=== PATIENT | male | born 1945 | race Native Hawaiian/Other Pacific Islander ===

== ENCOUNTER 2018-05-24 23:37 | Inpatient (IN) | payer MEDICARE ==
--- NOTE | 2018-05-24 23:59 | ED PDOC ---
Arrival/HPI - General Chief Complaint: Weakness/Neurological Deficit Time Seen by Provider: 05/24/18 23:42 Historian: Patient, Family - History of Present Illness Narrative History of Present Illness (Text): 05/24/18 23:59 73 year old male, whose past medical history includes diabetes and Hypertension, presents to the emergency department complaining of weakness for the last couple of days. As per family, patient had a fever yesterday and was diaphoretic. Patient also had an episode of vomiting yesterday and today. He did not get the flu shot this year. Patient is also complaining of decrease appetite and urinary urgency, but denies any chills, chest pain, shortness of breath, abdominal pain, nausea, diarrhea, back pain, neck pain, headache, dizziness, or any other complaints. PMD: Dr. Gama Time/Duration: Other (couple days) Symptom Onset: Gradual Symptom Course: Unchanged Activities at Onset: Light Context: Home Past Medical History - Provider Review Nursing Documentation Reviewed: Yes - Infectious Disease Hx of Infectious Diseases: None - Cardiac Hx Cardiac Disorders: Yes Hx Hypertension: Yes - Pulmonary Hx Respiratory Disorders: No - Neurological Hx Neurological Disorder: No - HEENT Hx HEENT Disorder: No - Renal Hx Renal Disorder: No - Endocrine/Metabolic Hx Endocrine Disorders: Yes Hx Diabetes Mellitus Type 2: Yes - Hematological/Oncological Hx Blood Disorders: No - Integumentary Hx Dermatological Disorder: No - Musculoskeletal/Rheumatological Hx Musculoskeletal Disorders: No - Gastrointestinal Hx Gastrointestinal Disorders: No - Genitourinary/Gynecological Hx Genitourinary Disorders: No - Psychiatric Hx Psychophysiologic Disorder: No Hx Substance Use: No - Anesthesia Hx Anesthesia: No Family/Social History - Physician Review Nursing Documentation Reviewed: Yes Family/Social History: No Known Family HX Smoking Status: Never Smoked Hx Alcohol Use: No Hx Substance Use: No Allergies/Home Meds Allergies/Adverse Reactions: Allergies No Known Allergies Allergy (Verified 05/24/18 23:50) Home Medications: Home Meds Medication Instructions Recorded Confirmed MetFORMIN [glucoPHAGE] 1,000 mg PO BID 05/24/18 05/24/18 amLODIPine [Norvasc] 10 mg PO BID 05/24/18 05/24/18 Review of Systems - Physician Review All systems were reviewed & negative as marked: Yes - Review of Systems Constitutional: Fevers. absent: Other (Chills) Respiratory: absent: SOB Cardiovascular: absent: Chest Pain Gastrointestinal: Vomiting, Appetite Changes (decrease). absent: Abdominal Pain, Diarrhea, Nausea Genitourinary Male: Other (urinary urgency) Musculoskeletal: absent: Back Pain, Neck Pain Neurological: Other (generalized wekaness). absent: Headache, Dizziness Endocrine: Diaphoresis Physical Exam Vital Signs Reviewed: Yes Vital Signs Temp Pulse Resp BP Pulse Ox 05/24/18 23:49 98.3 F 103 H 20 143/81 94 L Temperature: Febrile Blood Pressure: Normal Pulse: Tachycardic Respiratory Rate: Normal Appearance: Positive for: Well-Appearing, Non-Toxic, Comfortable Pain Distress: None Mental Status: Positive for: Alert and Oriented X 3 - Systems Exam Head: Present: Atraumatic, Normocephalic Pupils: Present: PERRL Extroacular Muscles: Present: EOMI Conjunctiva: Present: Normal Mouth: Present: Moist Mucous Membranes Neck: Present: Normal Range of Motion Respiratory/Chest: Present: Clear to Auscultation, Good Air Exchange. No: Respiratory Distress, Accessory Muscle Use Cardiovascular: Present: Tachycardic. No: Murmurs Abdomen: No: Tenderness, Distention, Peritoneal Signs Back: Present: Normal Inspection Upper Extremity: Present: Normal Inspection. No: Cyanosis, Edema Lower Extremity: Present: Normal Inspection. No: Edema Neurological: Present: GCS=15, CN II-XII Intact, Speech Normal Skin: Present: Warm, Dry, Normal Color. No: Rashes Psychiatric: Present: Alert, Oriented x 3, Normal Insight, Normal Concentration Medical Decision Making ED Course and Treatment: 05/24/18 23:59 Impression: 73 year old male presents complaining of weakness for the past couple of days associated with fever, diaphoresis, and episodes of vomiting yesterday and today. Patient also complaining of decrease appetite and urinary urgency. Plan: -- EKG -- Labs -- blood Culture -- Influenza A B -- Urinalysis w/ micro -- CXR -- Azactam 2gm, HumuLIN R -- Reassess and disposition Progress Notes: 05/24/18 23:55 EKG shows Sinus Tachycardia at 105 BPM. Interpreted by me 05/25/18 01:13 CXR Impression: As read by NAD. [email or web address] 05/25/18 01:32 Lactate 6.8. Code Sepsis called. 05/25/18 02:[address] Gama who is aware and agrees with the plan. 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 no acute mi on ekg possible sepsis and hyperglycemia 05/25/18 02:[address] Nava who is aware and agrees with the plan for ICU consult. pt stable for telemetry - Lab Interpretations I have reviewed the lab results: Yes - RAD Interpretation Supervisor [place]: ED Physician - EKG Interpretation Interpreted by ED Physician: Yes Type: 12 lead EKG - Scribe Statement The provider has reviewed the documentation as recorded by the Scribe Tracey Gonzalez Provider Scribe Attestation: All medical record entries made by the Scribe were at my direction and personally dictated by me. I have reviewed the chart and agree that the record accurately reflects my personal performance of the history, physical exam, medical decision making, and the department course for this patient. I have also personally directed, reviewed, and agree with the discharge instructions and disposition. Disposition/Present on Arrival - Present on Arrival Any Indicators Present on Arrival: No History of DVT/PE: No History of Uncontrolled Diabetes: No Urinary Catheter: No History of Decub. Ulcer: No History Surgical Site Infection Following: None - Disposition Have Diagnosis and Disposition been Completed?: Yes Diagnosis: Sepsis, Hyperglycemia, Myocardial infarction Disposition: HOSPITALIZED Disposition Time: 04:00 Condition: SERIOUS
[2018-05-25 00:40] LABS: PH,URINE 6.5 (4.7-8.0); URINE BILIRUBIN NEGATIVE (NEGATIVE); URINE BLOOD MODERATE (NEGATIVE); URINE GLUCOSE (UA) >=1000 mg/dL (NEGATIVE); URINE LEUKOCYTE ESTERASE NEGATIVE Leu/uL (NEGATIVE); URINE PROTEIN 100 mg/dL (<30 mg/dL); URINE UROBILINOGEN 0.2 E.U./dL (<1 E.U./dL)
[2018-05-25 00:41] LABS: ALBUMIN 3.8 g/dL (3.0-4.8); BASO # 0.01 K/mm3 (0.0-2.0); BASO % 0.1 % (0.0-3.0); CALCIUM 8.6 mg/dL (8.4-10.5); GRAN # 8.71 (1.4-6.5); GRAN % 88.8 % (50.0-68.0); LYMPH # 0.7 (1.2-3.4); LYMPH % 6.9 % (22.0-35.0); MEAN CELL VOLUME 81.1 fl (80.0-105.0); MEAN CORPUSCULAR HEMOGLOBIN 26.4 pg (25.0-35.0); MEAN CORPUSCULAR HGB CONC 32.5 g/dl (31.0-37.0); MEAN PLATELET VOLUME 11.4 fl (7.0-11.0); MONO # 0.4 (0.1-0.6); MONO % 4.2 % (1.0-6.0); RBC 4.17 10^6/uL (3.5-6.1); RED CELL DISTRIBUTION WIDTH 13.8 % (11.5-14.5); WHITE BLOOD COUNT 9.8 10^3/uL (4.5-11.0)
[2018-05-25] MEDS ORDERED: Insulin Regular 100 UNITS in Sodium Chloride 0.9% 99 ML IV PRN (00:46)
[2018-05-25 00:49] LABS: URINE APPEARANCE CLEAR (CLEAR); URINE COLOR YELLOW (YELLOW)
[2018-05-25] MEDS ORDERED: Sodium Chloride 0.9% 1,000 ML IV SCH (01:00)
[2018-05-25] MEDS ORDERED: Insulin Regular 1 UNITS/0.01 ML ML IVP STA (01:03)
[2018-05-25 01:07] LABS: URINE WBC 0 - 2 /hpf (0-6)
[2018-05-25 01:08] LABS: URINE BACTERIA RARE /hpf; URINE EPITHELIAL CELLS 0 - 2 /hpf (0-5)
[2018-05-25 01:23] LABS: TROPONIN I 0.56 ng/mL
[2018-05-25 01:30] LABS: VENOUS BLOOD GAS BASE EXCESS -6.8 mmol/L (0.0-2.0); VENOUS BLOOD GAS PO2 77 mm/Hg (30-55); VENOUS BLOOD PH 7.26 (7.32-7.43)
[2018-05-25] MEDS ORDERED: Aztreonam 2 Gm in NS 100mL 100 ML IVPB STA (01:35)
[2018-05-25] MEDS ORDERED: Vancomycin 1gm in NS 250ml 1 GM/250 ML BAG IVPB STA (03:53)
[2018-05-25] MEDS ORDERED: Sodium Chloride 0.9% 1,000 ML IV STA (03:55)
--- NOTE | 2018-05-25 04:18 | CP.PCM.CON ---
<Mando Hernandez - Last Filed: 05/25/18 04:25> History of Present Illness - History of Present Illness History of Present Illness: Mando Hernandez DO PGY1. ICU Consult note for Hospitalist Service C.C: weakness x4 days 73 y/o male with PMH of HTN, DM2 presents to ED with 4 days of generalized weakness. Yesterday, he started to have fever, diaphoresis, urinary urgency with incontinence and loss of appetite. He also had one episode of NBNB vomiting. He is compliant with his diabetes medication Metformin 1000mg bid. He denies chest pain, abdominal pain, N/V/D, leg swelling.Patient denied any recent travel or sick contacts. 12 points ROS with pertinent positive above. PMH: HTN, DM2 PSH: denied Med: norvasc 10mg qd, metformin 1000mg bid ALL: NKDA Soc Hx: denied alcohol, smoking, drug use FH: non contributory Past Patient History - Infectious Disease Hx of Infectious Diseases: None - Past Social History Smoking Status: Never Smoked - CARDIAC Hx Cardiac Disorders: Yes Hx Hypertension: Yes - PULMONARY Hx Respiratory Disorders: No - NEUROLOGICAL Hx Neurological Disorder: No - HEENT Hx HEENT Problems: No - RENAL Hx Chronic Kidney Disease: No - ENDOCRINE/METABOLIC Hx Endocrine Disorders: Yes Hx Diabetes Mellitus Type 2: Yes - HEMATOLOGICAL/ONCOLOGICAL Hx Blood Disorders: No - INTEGUMENTARY Hx Dermatological Problems: No - MUSCULOSKELETAL/RHEUMATOLOGICAL Hx Musculoskeletal Disorders: No - GASTROINTESTINAL Hx Gastrointestinal Disorders: No - GENITOURINARY/GYNECOLOGICAL Hx Genitourinary Disorders: No - PSYCHIATRIC Hx Psychophysiologic Disorder: No Hx Substance Use: No - SURGICAL HISTORY Hx Surgeries: No - ANESTHESIA Hx Anesthesia: No Meds Allergies/Adverse Reactions: Allergies Allergy/AdvReac Type Severity Reaction Status Date / Time No Known Allergies Allergy Verified 05/24/18 23:50 - Medications Medications: Current Medications Acetaminophen (Tylenol 325mg Tab) 650 mg PO Q4H PRN PRN Reason: Fever >100.5 F Vancomycin HCl (Vancomycin 1gm) 1 gm in 250 mls @ 167 mls/hr IVPB STAT STA; Protocol Stop: 05/25/18 05:22 Last Admin: 05/25/18 04:12 Dose: 167 mls/hr Sodium Chloride (Sodium Chloride 0.9%) 1,000 mls @ 100 mls/hr IV .Q10H STA Stop: 05/25/18 13:54 Last Admin: 05/25/18 04:12 Dose: 100 mls/hr Insulin Human Regular (Humulin R Low) 0 units SC [facility]; Protocol Ondansetron HCl (Zofran Inj) 4 mg IVP Q6H PRN PRN Reason: Nausea/Vomiting Physical Exam - Constitutional Appears: Well, No Acute Distress - Head Exam Head Exam: ATRAUMATIC, NORMAL INSPECTION, NORMOCEPHALIC - Eye Exam Eye Exam: EOMI, Normal appearance, PERRL Pupil Exam: NORMAL ACCOMODATION, PERRL - ENT Exam ENT Exam: Mucous Membranes Dry - Neck Exam Neck exam: Positive for: Normal Inspection - Respiratory Exam Respiratory Exam: Clear to Auscultation Bilateral, NORMAL BREATHING PATTERN - Cardiovascular Exam Cardiovascular Exam: Tachycardia, REGULAR RHYTHM, +S1, +S2. absent: Gallop, Rubs - GI/Abdominal Exam GI & Abdominal Exam: Normal Bowel Sounds, Soft. absent: Tenderness - Extremities Exam Extremities exam: Positive for: normal capillary refill, normal inspection, pedal pulses present - Back Exam Back exam: NORMAL INSPECTION. absent: CVA tenderness (L), CVA tenderness (R) - Neurological Exam Neurological exam: Alert, CN II-XII Intact, Normal Gait, Oriented x3, Reflexes Normal - Psychiatric Exam Psychiatric exam: Normal Affect, Normal Mood - Skin Skin Exam: Diaphoretic, Intact, Warm Results - Vital Signs Recent Vital Signs: Last Vital Signs Temp 99.2 F 05/25/18 02:59 Pulse 112 H 05/25/18 02:59 Resp 18 05/25/18 02:59 BP 145/74 05/25/18 02:59 Pulse Ox 94 L 05/25/18 02:59 - Labs Result Diagrams: 05/25/18 00:04 05/25/18 00:04 Labs: Laboratory Results - last 24 hr 05/25/18 05/25/18 05/25/18 00:00 00:04 00:04 WBC 9.8 RBC 4.17 Hgb 11.0 L Hct 33.8 L MCV 81.1 MCH 26.4 MCHC 32.5 RDW 13.8 Plt Count 200 MPV 11.4 H Gran % 88.8 H Lymph % (Auto) 6.9 L [place] % (Auto) 4.2 Eos % (Auto) 0.0 L Baso % (Auto) 0.1 Gran # 8.71 H Lymph # (Auto) 0.7 L [place] # (Auto) 0.4 Eos # (Auto) 0.0 Baso # (Auto) 0.01 pO2 VBG pH VBG pCO2 VBG HCO3 VBG Total CO2 VBG O2 Sat (Calc) VBG Base Excess VBG Potassium Glucose Lactate FiO2 Sodium 137 Potassium 3.7 Chloride 99 Carbon Dioxide 25 Anion Gap 17 BUN 24 H Creatinine 2.3 H Est GFR ( Amer) 34 Est GFR (Non-Af Amer) 28 Random Glucose 860 H* Calcium 8.6 Total Bilirubin 0.9 AST 49 ALT 52 Alkaline Phosphatase 137 H Troponin I 0.56 H* Total Protein 7.5 Albumin 3.8 Globulin 3.7 Albumin/Globulin Ratio 1.0 L Venous Blood Potassium Urine Color Urine Appearance Urine pH Ur Specific [place] Urine Protein Urine Glucose (UA) Urine Ketones Urine Blood Urine Nitrate Urine Bilirubin Urine Urobilinogen Ur Leukocyte Esterase Urine RBC Urine WBC Ur Epithelial Cells Urine Bacteria Influenza Typ A,B (EIA) Negative for flu a/b 05/25/18 05/25/18 00:21 01:06 WBC RBC Hgb Hct MCV MCH MCHC RDW Plt Count MPV Gran % Lymph % (Auto) [place] % (Auto) Eos % (Auto) Baso % (Auto) Gran # Lymph # (Auto) [place] # (Auto) Eos # (Auto) Baso # (Auto) pO2 77 H VBG pH 7.26 L VBG pCO2 45.0 VBG HCO3 20.2 L VBG Total CO2 21.6 L VBG O2 Sat (Calc) 95.8 H VBG Base Excess -6.8 L VBG Potassium 3.9 Glucose > 750 H* Lactate 6.8 H* FiO2 21.0 Sodium 142.0 Potassium Chloride 99.0 Carbon Dioxide Anion Gap BUN Creatinine Est GFR ( Amer) Est GFR (Non-Af Amer) Random Glucose Calcium Total Bilirubin AST ALT Alkaline Phosphatase Troponin I Total Protein Albumin Globulin Albumin/Globulin Ratio Venous Blood Potassium 3.9 Urine Color Yellow Urine Appearance Clear Urine pH 6.5 Ur Specific [place] 1.015 Urine Protein 100 H Urine Glucose (UA) >=1000 Urine Ketones Negative Urine Blood Moderate H Urine Nitrate Negative Urine Bilirubin Negative Urine Urobilinogen 0.2 Ur Leukocyte Esterase Negative Urine RBC 1 - 3 H Urine WBC 0 - 2 Ur Epithelial Cells 0 - 2 Urine Bacteria Rare Influenza Typ A,B (EIA) Assessment & Plan - Assessment and Plan (Free Text) Assessment: 73 y/o male with PMH of HTN, DM2 presents to ED with 4 days of generalized weakness associated fever, diaphoresis, urinary urgency with incontinence and loss of appetite. He was found to have BG 860, BUN/Cr 24/2.4, trop 0.56 x1 Plan: Patient seen and examined at bedside in ED. He is AAOx3, speaking in full sentences in NAD Vital signs reviewed, normotensive but tachy @112, afebrile, with 95% O2 at RA Patient received bolus fluid and 10 units of insulin in ED IVF NS@100cc/hr, levemir 10 q12hr, ASA 325mg stat ordered blood and urine culture ordered, repeat trop q6h x2 Patient is hemodynamically stable and improved after fluid resuscitation Patient will be admitted to telemetry for observation further management as per PMD Dr Wynne Case reviewed and discussed with Dr Nava <Lit Nava - Last Filed: 05/25/18 19:47> Meds - Medications Medications: Current Medications Acetaminophen (Tylenol 325mg Tab) 650 mg PO Q4H PRN PRN Reason: Fever >100.5 F Amlodipine Besylate (Norvasc) 10 mg PO DAILY [facility] Last Admin: 05/25/18 10:42 Dose: 10 mg Glimepiride (Amaryl) 4 mg PO DAILY [facility] Last Admin: 05/25/18 10:42 Dose: 4 mg Sodium Chloride (Sodium Chloride 0.9%) 1,000 mls @ 100 mls/hr IV .Q10H [facility] Last Admin: 05/25/18 05:24 Dose: 100 mls/hr Heparin Sodium/Sodium Chloride (Heparin 80118 Units/250ml 1/2 Normal Saline) 25,000 units in 250 mls @ 10 mls/hr IV .Q24H [facility]; Protocol Last Titration: 05/25/18 19:09 Dose: 8.5 mls/hr Ceftriaxone Sodium (Rocephin 1 Gram Ivpb) 1 gm in 100 mls @ 100 mls/hr IVPB DAILY [facility]; Protocol Last Admin: 05/25/18 15:14 Dose: 100 mls/hr Insulin Detemir (Levemir) 24 unit SC HS [facility] Insulin Human Lispro (Humalog Low) 0 units SC A[facility]S [facility]; Protocol Last Admin: 05/25/18 17:48 Dose: Not Given Insulin Human Lispro (Humalog) 8 units SC AC [facility] Last Admin: 05/25/18 17:51 Dose: 8 units Ondansetron HCl (Zofran Inj) 4 mg IVP Q6H PRN PRN Reason: Nausea/Vomiting Results - Vital Signs Recent Vital Signs: Last Vital Signs Temp 97.6 F 05/25/18 18:00 Pulse 115 H 05/25/18 18:00 Resp 20 05/25/18 18:00 BP 151/91 H 05/25/18 18:00 Pulse Ox 94 L 05/25/18 06:00 - Labs Result Diagrams: 05/25/18 00:04 05/25/18 06:00 Labs: Laboratory Results - last 24 hr 05/25/18 05/25/18 05/25/18 00:00 00:04 00:04 WBC 9.8 RBC 4.17 Hgb 11.0 L Hct 33.8 L MCV 81.1 MCH 26.4 MCHC 32.5 RDW 13.8 Plt Count 200 MPV 11.4 H Gran % 88.8 H Lymph % (Auto) 6.9 L [place] % (Auto) 4.2 Eos % (Auto) 0.0 L Baso % (Auto) 0.1 Gran # 8.71 H Lymph # (Auto) 0.7 L [place] # (Auto) 0.4 Eos # (Auto) 0.0 Baso # (Auto) 0.01 PT INR APTT D-Dimer, Quantitative pO2 VBG pH VBG pCO2 VBG HCO3 VBG Total CO2 VBG O2 Sat (Calc) VBG Base Excess VBG Potassium Glucose Lactate FiO2 Sodium 137 Potassium 3.7 Chloride 99 Carbon Dioxide 25 Anion Gap 17 BUN 24 H Creatinine 2.3 H Est GFR ( Amer) 34 Est GFR (Non-Af Amer) 28 POC Glucose (mg/dL) Random Glucose 860 H* Calcium 8.6 Total Bilirubin 0.9 AST 49 ALT 52 Alkaline Phosphatase 137 H Total Creatine Kinase CK-MB (CK-2) CK-MB (CK-2) % Troponin I 0.56 H* Total Protein 7.5 Albumin 3.8 Globulin 3.7 Albumin/Globulin Ratio 1.0 L Triglycerides Cholesterol LDL Cholesterol Direct HDL Cholesterol Procalcitonin Venous Blood Potassium Urine Color Urine Appearance Urine pH Ur Specific [place] Urine Protein Urine Glucose (UA) Urine Ketones Urine Blood Urine Nitrate Urine Bilirubin Urine Urobilinogen Ur Leukocyte Esterase Urine RBC Urine WBC Ur Epithelial Cells Urine Bacteria Influenza Typ A,B (EIA) Negative for flu a/b 05/25/18 05/25/18 05/25/18 00:04 00:21 00:46 WBC RBC Hgb Hct MCV MCH MCHC RDW Plt Count MPV Gran % Lymph % (Auto) [place] % (Auto) Eos % (Auto) Baso % (Auto) Gran # Lymph # (Auto) [place] # (Auto) Eos # (Auto) Baso # (Auto) PT INR APTT D-Dimer, Quantitative pO2 VBG pH VBG pCO2 VBG HCO3 VBG Total CO2 VBG O2 Sat (Calc) VBG Base Excess VBG Potassium Glucose Lactate FiO2 Sodium Potassium Chloride Carbon Dioxide Anion Gap BUN Creatinine Est GFR ( Amer) Est GFR (Non-Af Amer) POC Glucose (mg/dL) > 500 H* Random Glucose Calcium Total Bilirubin AST ALT Alkaline Phosphatase Total Creatine Kinase 398 H CK-MB (CK-2) 2.8 CK-MB (CK-2) % Cancelled Troponin I Total Protein Albumin Globulin Albumin/Globulin Ratio Triglycerides Cholesterol LDL Cholesterol Direct HDL Cholesterol Procalcitonin Venous Blood Potassium Urine Color Yellow Urine Appearance Clear Urine pH 6.5 Ur Specific [place] 1.015 Urine Protein 100 H Urine Glucose (UA) >=1000 Urine Ketones Negative Urine Blood Moderate H Urine Nitrate Negative Urine Bilirubin Negative Urine Urobilinogen 0.2 Ur Leukocyte Esterase Negative Urine RBC 1 - 3 H Urine WBC 0 - 2 Ur Epithelial Cells 0 - 2 Urine Bacteria Rare Influenza Typ A,B (EIA) 05/25/18 05/25/18 05/25/18 01:06 04:12 05:22 WBC RBC Hgb Hct MCV MCH MCHC RDW Plt Count MPV Gran % Lymph % (Auto) [place] % (Auto) Eos % (Auto) Baso % (Auto) Gran # Lymph # (Auto) [place] # (Auto) Eos # (Auto) Baso # (Auto) PT INR APTT D-Dimer, Quantitative pO2 77 H 197 H VBG pH 7.26 L 7.44 H VBG pCO2 45.0 37.0 L VBG HCO3 20.2 L 25.1 VBG Total CO2 21.6 L 26.2 VBG O2 Sat (Calc) 95.8 H 99.1 H VBG Base Excess -6.8 L 1.1 VBG Potassium 3.9 3.4 L Glucose > 750 H* 487 H* D Lactate 6.8 H* 2.0 FiO2 21.0 21.0 Sodium 142.0 144.0 Potassium Chloride 99.0 109.0 H Carbon Dioxide Anion Gap BUN Creatinine Est GFR ( Amer) Est GFR (Non-Af Amer) POC Glucose (mg/dL) 398 H Random Glucose Calcium Total Bilirubin AST ALT Alkaline Phosphatase Total Creatine Kinase CK-MB (CK-2) CK-MB (CK-2) % Troponin I Total Protein Albumin Globulin Albumin/Globulin Ratio Triglycerides Cholesterol LDL Cholesterol Direct HDL Cholesterol Procalcitonin Venous Blood Potassium 3.9 3.4 L Urine Color Urine Appearance Urine pH Ur Specific [place] Urine Protein Urine Glucose (UA) Urine Ketones Urine Blood Urine Nitrate Urine Bilirubin Urine Urobilinogen Ur Leukocyte Esterase Urine RBC Urine WBC Ur Epithelial Cells Urine Bacteria Influenza Typ A,B (EIA) 05/25/18 05/25/18 05/25/18 06:00 06:00 07:42 WBC RBC Hgb Hct MCV MCH MCHC RDW Plt Count MPV Gran % Lymph % (Auto) [place] % (Auto) Eos % (Auto) Baso % (Auto) Gran # Lymph # (Auto) [place] # (Auto) Eos # (Auto) Baso # (Auto) PT INR APTT D-Dimer, Quantitative pO2 VBG pH VBG pCO2 VBG HCO3 VBG Total CO2 VBG O2 Sat (Calc) VBG Base Excess VBG Potassium Glucose Lactate FiO2 Sodium 141 Potassium 3.3 L Chloride 108 H Carbon Dioxide 26 Anion Gap 11 BUN 19 Creatinine 2.1 H Est GFR ( Amer) 38 Est GFR (Non-Af Amer) 31 POC Glucose (mg/dL) 381 H Random Glucose 447 H* D Calcium 8.2 L Total Bilirubin 0.8 AST 52 ALT 48 Alkaline Phosphatase 124 Total Creatine Kinase CK-MB (CK-2) CK-MB (CK-2) % Troponin I 0.57 H* Total Protein 6.4 Albumin 3.2 Globulin 3.2 Albumin/Globulin Ratio 1.0 L Triglycerides 229 H Cholesterol 119 L LDL Cholesterol Direct 55 HDL Cholesterol 24 L Procalcitonin Venous Blood Potassium Urine Color Urine Appearance Urine pH Ur Specific [place] Urine Protein Urine Glucose (UA) Urine Ketones Urine Blood Urine Nitrate Urine Bilirubin Urine Urobilinogen Ur Leukocyte Esterase Urine RBC Urine WBC Ur Epithelial Cells Urine Bacteria Influenza Typ A,B (EIA) 05/25/18 05/25/18 05/25/18 11:05 11:16 11:38 WBC RBC Hgb Hct MCV MCH MCHC RDW Plt Count MPV Gran % Lymph % (Auto) [place] % (Auto) Eos % (Auto) Baso % (Auto) Gran # Lymph # (Auto) [place] # (Auto) Eos # (Auto) Baso # (Auto) PT 13.5 H INR 1.17 APTT 32.7 D-Dimer, Quantitative pO2 VBG pH VBG pCO2 VBG HCO3 VBG Total CO2 VBG O2 Sat (Calc) VBG Base Excess VBG Potassium Glucose Lactate FiO2 Sodium Potassium Chloride Carbon Dioxide Anion Gap BUN Creatinine Est GFR ( Amer) Est GFR (Non-Af Amer) POC Glucose (mg/dL) 376 H Random Glucose Calcium Total Bilirubin AST ALT Alkaline Phosphatase Total Creatine Kinase CK-MB (CK-2) CK-MB (CK-2) % Troponin I Total Protein Albumin Globulin Albumin/Globulin Ratio Triglycerides Cholesterol LDL Cholesterol Direct HDL Cholesterol Procalcitonin 0.17 L Venous Blood Potassium Urine Color Urine Appearance Urine pH Ur Specific [place] Urine Protein Urine Glucose (UA) Urine Ketones Urine Blood Urine Nitrate Urine Bilirubin Urine Urobilinogen Ur Leukocyte Esterase Urine RBC Urine WBC Ur Epithelial Cells Urine Bacteria Influenza Typ A,B (EIA) 05/25/18 05/25/18 05/25/18 11:40 12:04 17:11 WBC RBC Hgb Hct MCV MCH MCHC RDW Plt Count MPV Gran % Lymph % (Auto) [place] % (Auto) Eos % (Auto) Baso % (Auto) Gran # Lymph # (Auto) [place] # (Auto) Eos # (Auto) Baso # (Auto) PT INR APTT D-Dimer, Quantitative 1633 H pO2 VBG pH VBG pCO2 VBG HCO3 VBG Total CO2 VBG O2 Sat (Calc) VBG Base Excess VBG Potassium Glucose Lactate FiO2 Sodium Potassium Chloride Carbon Dioxide Anion Gap BUN Creatinine Est GFR ( Amer) Est GFR (Non-Af Amer) POC Glucose (mg/dL) 193 H Random Glucose Calcium Total Bilirubin AST ALT Alkaline Phosphatase Total Creatine Kinase CK-MB (CK-2) CK-MB (CK-2) % Troponin I 0.58 H* Total Protein Albumin Globulin Albumin/Globulin Ratio Triglycerides Cholesterol LDL Cholesterol Direct HDL Cholesterol Procalcitonin Venous Blood Potassium Urine Color Urine Appearance Urine pH Ur Specific [place] Urine Protein Urine Glucose (UA) Urine Ketones Urine Blood Urine Nitrate Urine Bilirubin Urine Urobilinogen Ur Leukocyte Esterase Urine RBC Urine WBC Ur Epithelial Cells Urine Bacteria Influenza Typ A,B (EIA) 05/25/18 18:34 WBC RBC Hgb Hct MCV MCH MCHC RDW Plt Count MPV Gran % Lymph % (Auto) [place] % (Auto) Eos % (Auto) Baso % (Auto) Gran # Lymph # (Auto) [place] # (Auto) Eos # (Auto) Baso # (Auto) PT INR APTT 83.1 H D-Dimer, Quantitative pO2 VBG pH VBG pCO2 VBG HCO3 VBG Total CO2 VBG O2 Sat (Calc) VBG Base Excess VBG Potassium Glucose Lactate FiO2 Sodium Potassium Chloride Carbon Dioxide Anion Gap BUN Creatinine Est GFR ( Amer) Est GFR (Non-Af Amer) POC Glucose (mg/dL) Random Glucose Calcium Total Bilirubin AST ALT Alkaline Phosphatase Total Creatine Kinase CK-MB (CK-2) CK-MB (CK-2) % Troponin I Total Protein Albumin Globulin Albumin/Globulin Ratio Triglycerides Cholesterol LDL Cholesterol Direct HDL Cholesterol Procalcitonin Venous Blood Potassium Urine Color Urine Appearance Urine pH Ur Specific [place] Urine Protein Urine Glucose (UA) Urine Ketones Urine Blood Urine Nitrate Urine Bilirubin Urine Urobilinogen Ur Leukocyte Esterase Urine RBC Urine WBC Ur Epithelial Cells Urine Bacteria Influenza Typ A,B (EIA) Attending/Attestation - Attestation I have personally seen and examined this patient.: Yes I have fully participated in the care of the patient.: Yes I have reviewed all pertinent clinical information: Yes
[2018-05-25 04:24] LABS: VENOUS BLOOD GAS BASE EXCESS 1.1 mmol/L (0.0-2.0); VENOUS BLOOD GAS PO2 197 mm/Hg (30-55); VENOUS BLOOD PH 7.44 (7.32-7.43)
[2018-05-25 04:46] LABS: CK-MB 2.8 ng/mL (0.0-3.6)
[2018-05-25] MEDS: Insulin Detemir 100 units/ml Vial (Levemir) SC SCH ×2 (05:23→10:42)
[2018-05-25] MEDS: Sodium Chloride 0.9% 1,000 ML IV SCH (05:24)
[2018-05-25 07:05] LABS: ALBUMIN 3.2 g/dL (3.0-4.8); CALCIUM 8.2 mg/dL (8.4-10.5); TROPONIN I 0.57 ng/mL
[2018-05-25] MEDS: Insulin Reg-LOW-Coverage SC SCH ×2 (08:08→12:32)
[2018-05-25 08:52] LABS: HDL CHOLESTEROL 24 mg/dL (29-60)
[2018-05-25 09:03] LABS: LDL CHOLESTEROL 55 mg/dL (0-129)
--- NOTE | 2018-05-25 09:19 | CARD ---
APPROVED REPORT Date of service: 05/24/2018 EKG Measurement Heart [id number] <Conclusion> Sinus tachycardia Q i lll NSSTW changes
--- NOTE | 2018-05-25 09:22 | CARD ---
APPROVED REPORT Date of service: 05/25/2018 EKG Measurement Heart [id number] <Conclusion> Sinus tachycardia Q in lll NSSTW changes No change except the rate is faster
--- NOTE | 2018-05-25 09:22 | RAD ---
Date of service: 05/25/2018 HISTORY: sob COMPARISON: No prior. FINDINGS: LUNGS: No active pulmonary disease. PLEURA: No significant pleural effusion identified, no pneumothorax apparent. CARDIOVASCULAR: No aortic atherosclerotic calcification present. Normal cardiac size. No pulmonary vascular congestion. OSSEOUS STRUCTURES: No significant abnormalities. VISUALIZED UPPER ABDOMEN: Normal. OTHER FINDINGS: None. IMPRESSION: No active disease.
--- NOTE | 2018-05-25 11:14 | CP.PCM.APN ---
Subjective - Subjective Subjective: pt seen and examined at bedside with nurse Review of Systems - Constitutional Constitutional: absent: As Per HPI, Anorexia, Chills, Daytime Sleepiness, Excessive Sweating, Fatigue, Fever, Frequent Falls, Headache, Increased Appetite, Lethargy, Malaise, Night Sweats, Snoring, Sleep Apnea, Weight Gain, Weight Loss, Weakness, Other Objective - Vital Signs/Intake and Output Vital Signs (last 24 hours): Temp Pulse Resp BP Pulse Ox 98 F 94 H 18 147/81 94 L 05/25/18 06:00 05/25/18 06:00 05/25/18 06:00 05/25/18 10:42 05/25/18 06:00 - Medications Medications: Current Medications Acetaminophen (Tylenol 325mg Tab) 650 mg PO Q4H PRN PRN Reason: Fever >100.5 F Amlodipine Besylate (Norvasc) 10 mg PO DAILY [facility] Last Admin: 05/25/18 10:42 Dose: 10 mg Glimepiride (Amaryl) 4 mg PO DAILY [facility] Last Admin: 05/25/18 10:42 Dose: 4 mg Sodium Chloride (Sodium Chloride 0.9%) 1,000 mls @ 100 mls/hr IV .Q10H STA Stop: 05/25/18 13:54 Last Admin: 05/25/18 04:12 Dose: 100 mls/hr Sodium Chloride (Sodium Chloride 0.9%) 1,000 mls @ 100 mls/hr IV .Q10H [facility] Last Admin: 05/25/18 05:24 Dose: 100 mls/hr Potassium Chloride (Potassium Chloride 10 Meq/100 Ml) 10 meq in 100 mls @ 50 mls/hr IVPB Q2H [facility] Stop: 05/25/18 11:44 Last Admin: 05/25/18 08:09 Dose: 50 mls/hr Heparin Sodium/Sodium Chloride (Heparin 07195 Units/250ml 1/2 Normal Saline) 25,000 units in 250 mls @ 10 mls/hr IV .Q24H [facility]; Protocol Insulin Detemir (Levemir) 10 unit SC Q12 [facility] Last Admin: 05/25/18 10:42 Dose: Not Given Insulin Human Regular (Humulin R Low) 0 units SC ACHS [facility]; Protocol Last Admin: 05/25/18 08:08 Dose: 5 u Metformin HCl (Glucophage) 1,000 mg PO BID [facility] Last Admin: 05/25/18 10:42 Dose: 1,000 mg Ondansetron HCl (Zofran Inj) 4 mg IVP Q6H PRN PRN Reason: Nausea/Vomiting - Labs Labs: 05/25/18 00:04 05/25/18 06:00 - Constitutional Appears: Non-toxic, No Acute Distress - Eye Exam Eye Exam: Normal appearance Pupil Exam: NORMAL ACCOMODATION - Respiratory Exam Respiratory Exam: NORMAL BREATHING PATTERN - Cardiovascular Exam Cardiovascular Exam: +S1, +S2 - GI/Abdominal Exam GI & Abdominal Exam: Normal Bowel Sounds - Neurological Exam Neurological Exam: Alert, Oriented x3 - Psychiatric Exam Psychiatric exam: Normal Affect, Normal Mood - Skin Skin Exam: Dry, Intact Assessment and Plan - Assessment and Plan (Free Text) Plan: Impressions Chest X-Ray 05/25/18 00:00 IMPRESSION: No active disease. Laboratory Results WBC 9.8 10^3/uL (4.5-11.0) 05/25/18 00:04 RBC 4.17 10^6/uL (3.5-6.1) 05/25/18 00:04 Hgb 11.0 g/dL (14.0-18.0) L 05/25/18 00:04 Hct 33.8 % (42.0-52.0) L 05/25/18 00:04 MCV 81.1 fl (80.0-105.0) 05/25/18 00:04 MCH 26.4 pg (25.0-35.0) 05/25/18 00:04 MCHC 32.5 g/dl (31.0-37.0) 05/25/18 00:04 RDW 13.8 % (11.5-14.5) 05/25/18 00:04 Plt Count 200 10^3/uL (120.0-450.0) 05/25/18 00:04 MPV 11.4 fl (7.0-11.0) H 05/25/18 00:04 Gran % 88.8 % (50.0-68.0) H 05/25/18 00:04 Lymph % (Auto) 6.9 % (22.0-35.0) L 05/25/18 00:04 Milam % (Auto) 4.2 % (1.0-6.0) 05/25/18 00:04 Eos % (Auto) 0.0 % (1.5-5.0) L 05/25/18 00:04 Baso % (Auto) 0.1 % (0.0-3.0) 05/25/18 00:04 Gran # 8.71 (1.4-6.5) H 05/25/18 00:04 Lymph # (Auto) 0.7 (1.2-3.4) L 05/25/18 00:04 Milam # (Auto) 0.4 (0.1-0.6) 05/25/18 00:04 Eos # (Auto) 0.0 (0.0-0.7) 05/25/18 00:04 Baso # (Auto) 0.01 K/mm3 (0.0-2.0) 05/25/18 00:04 pO2 197 mm/Hg (30-55) H 05/25/18 04:12 VBG pH 7.44 (7.32-7.43) H 05/25/18 04:12 VBG pCO2 37.0 (40-60) L 05/25/18 04:12 VBG HCO3 25.1 mmol/l (21-28) 05/25/18 04:12 VBG Total CO2 26.2 mmol.L (22-28) 05/25/18 04:12 VBG O2 Sat (Calc) 99.1 % (40-65) H 05/25/18 04:12 VBG Base Excess 1.1 mmol/L (0.0-2.0) 05/25/18 04:12 VBG Potassium 3.4 mmol/L (3.6-5.2) L 05/25/18 04:12 Sodium 144.0 mmol/L (132-148) 05/25/18 04:12 Chloride 109.0 mmol/L (98-107) H 05/25/18 04:12 Glucose 487 mg/dl (75-110) H* D 05/25/18 04:12 Lactate 2.0 mmol/L (0.7-2.1) 05/25/18 04:12 FiO2 21.0 % 05/25/18 04:12 Sodium 141 mmol/L (132-148) 05/25/18 06:00 Potassium 3.3 mmol/L (3.6-5.0) L 05/25/18 06:00 Chloride 108 mmol/L (98-107) H 05/25/18 06:00 Carbon Dioxide 26 mmol/L (21-33) 05/25/18 06:00 Anion Gap 11 (10-20) 05/25/18 06:00 BUN 19 mg/dL (7-21) 05/25/18 06:00 Creatinine 2.1 mg/dl (0.8-1.5) H 05/25/18 06:00 Est GFR ( Amer) 38 05/25/18 06:00 Est GFR (Non-Af Amer) 31 05/25/18 06:00 POC Glucose (mg/dL) 398 mg/dL (65-110) H 05/25/18 05:22 Random Glucose 447 mg/dL (70-110) H* D 05/25/18 06:00 Calcium 8.2 mg/dL (8.4-10.5) L 05/25/18 06:00 Total Bilirubin 0.8 mg/dL (0.2-1.3) 05/25/18 06:00 AST 52 U/L (17-59) 05/25/18 06:00 ALT 48 U/L (7-56) 05/25/18 06:00 Alkaline Phosphatase 124 U/L (38-126) 05/25/18 06:00 Total Creatine Kinase 398 U/L (35-230) H 05/25/18 00:04 CK-MB (CK-2) 2.8 ng/mL (0.0-3.6) 05/25/18 00:04 CK-MB (CK-2) % Cancelled 05/25/18 00:04 Troponin I 0.57 ng/mL H* 05/25/18 06:00 Total Protein 6.4 g/dL (5.8-8.3) 05/25/18 06:00 Albumin 3.2 g/dL (3.0-4.8) 05/25/18 06:00 Globulin 3.2 gm/dL 05/25/18 06:00 Albumin/Globulin Ratio 1.0 (1.1-1.8) L 05/25/18 06:00 Triglycerides 229 mg/dL (35-160) H 05/25/18 06:00 Cholesterol 119 mg/dL (130-200) L 05/25/18 06:00 LDL Cholesterol Direct 55 mg/dL (0-129) 05/25/18 06:00 HDL Cholesterol 24 mg/dL (29-60) L 05/25/18 06:00 Venous Blood Potassium 3.4 mmol/L (3.6-5.2) L 05/25/18 04:12 Urine Color Yellow (YELLOW) 05/25/18 00:21 Urine Appearance Clear (CLEAR) 05/25/18 00:21 Urine pH 6.5 (4.7-8.0) 05/25/18 00:21 Ur Specific [place] 1.015 (1.005-1.035) 05/25/18 00: Urine Protein 100 mg/dL (<30 mg/dL) H 05/25/18 00:21 Urine Glucose (UA) >=1000 mg/dL (NEGATIVE) 05/25/18 00: Urine Ketones Negative mg/dL (NEGATIVE) 05/25/18 00: Urine Blood Moderate (NEGATIVE) H 05/25/18 00:21 Urine Nitrate Negative (NEGATIVE) 05/25/18 00: Urine Bilirubin Negative (NEGATIVE) 05/25/18 00: Urine Urobilinogen 0.2 E.U./dL (<1 E.U./dL) 05/25/18 00:21 Ur Leukocyte Esterase Negative [place]/uL (NEGATIVE) 05/25/18 00:21 Urine RBC 1 - 3 /hpf (0-2) H 05/25/18 00:21 Urine WBC 0 - 2 /hpf (0-6) 05/25/18 00:21 Ur Epithelial Cells 0 - 2 /hpf (0-5) 05/25/18 00: Urine Bacteria Rare /hpf (NONE) 05/25/18 00:21 Influenza Typ A,B (EIA) Negative for flu a/b (NEGATIVE) 05/25/18 00:00 ITS Impressions Chest X-Ray 05/25/18 00:00 IMPRESSION: No active disease. Cardiology / EKG Studies 05/25/18 00:00 ELECTROCARDIOGRAM Stat Comment: Reason For Exam: fever 05/25/18 01:51 ELECTROCARDIOGRAM Stat Comment: Reason For Exam: REPEAT EKG 73 yr old male with pmh sig for dm and htn who presented to tthe ER with weakness for a few days, hda fever at home and diaphoresis now admitted for evaluation with elevated lactate of 6.8 , elevate d blood sugars and elevated trop 0.57 and temp of 101.4 noted yesterday. Pt is being evaluated by cardiology and ID with sibley cultures pending and vq scan pending pt started on iv heparin and IV antibiotics discuss with pmd endocrine consult, will follow BPCI/TIC - BPCIA/TIC Educated pt/family on BPCIA/CIR/Med to Bed Programs: Yes Flyers given, including [facility] Beneficiary letter: Yes Pt/family verbalized understanding & agreed to program: Yes
[2018-05-25 11:27] LABS: INR 1.17; PARTIAL THROMBOPLASTIN TIME 32.7 Seconds (25.1-36.5); PROTHROMBIN TIME 13.5 SECONDS (9.4-12.5)
[2018-05-25] MEDS: Heparin25000 units/250ml 1/2NS 25,000 UNITS/250 ML BAG IV SCH (11:43)
[2018-05-25] MEDS ORDERED: Vancomycin 2 GM in Sodium Chloride 0.9% 500 ML IVPB ONE (12:24)
[2018-05-25] MEDS ORDERED: cefTRIAXone 1 gm 1 GM/100 ML BAG IVPB SCH (12:30)
--- NOTE | 2018-05-25 13:01 | CON ---
DATE: 05/25/2018 CARDIOLOGY CONSULTATION HISTORY: The patient is a 73-year-old male, who presents with nausea and vomiting. The patient's cardiac status includes hypertension and hypercholesterolemia. He denies previous cardiac history in the past. He denies previous myocardial infarction. He denies shortness of breath. Denies angina. SOCIAL HISTORY: He denies smoking. REVIEW OF SYSTEMS: Fourteen-point review of systems is reviewed in detail. His nausea is now resolved. No further cardiac symptoms were elicited. PHYSICAL EXAMINATION: VITAL SIGNS: Blood pressure is 147/81, the heart rate is in the 90s. NECK: Negative JVD. LUNGS: Without rales. HEART: Heart rate S1, S2. EXTREMITIES: Without edema. LABORATORY DATA: EKG shows normal sinus rhythm with nonspecific ST-T changes. Hemoglobin is 11.0. Troponins of 0.57, glucose is 447 with a creatinine of 2.1. IMPRESSION: 1. Non-ST elevation myocardial infarction. 2. Diabetes, out of control. 3. Resolution of nausea and vomiting. 4. Renal insufficiency. 5. Hypertension. 6. Coronary artery disease. PLAN: Given these findings, we will obtain a V/Q scan to rule out pulmonary embolism as a cause of his elevated troponins. We will start him on aspirin as well as IV heparin. An echocardiogram has been ordered. We cannot proceed to cardiac catheterization until we can better define his renal insufficiency. Donta Garcia MD
--- NOTE | 2018-05-25 13:58 | NM ---
Date of service: 05/25/2018 COMPARISON: Portable chest same day TECHNIQUE: 30.8 mCi technetium 99-m DTPA aerosol. 5.0 mCI technetium 99-m MAA administered intravenously. FINDINGS: VENTILATION COMPONENT: Normal. PERFUSION COMPONENT: Normal. IMPRESSION: Lowprobability ventilation perfusion scan for pulmonary embolism.
--- NOTE | 2018-05-25 14:24 | CP.PCM.PCO ---
Physician Communication Note - Physician Communication Note Physician Communication Note: in V/Q scan - reviewed chart, talked to nurse- R/O UTI will start Rocephin
--- NOTE | 2018-05-25 15:43 | CARD ---
APPROVED REPORT Date of service: 05/25/2018 EXAM: Two-dimensional and M-mode echocardiogram with Doppler and color Doppler. INDICATION Non STEMI 2D DIMENSIONS Left Atrium (2D)4.1 (1.6-4.0cm)IVSd1.3 (0.7-1.1cm) LVDd4.4 (3.9-5.9cm)PWd1.2 (0.7-1.1cm) LVDs2.9 (2.5-4.0cm)FS (%) 32.9 % LVEF (%)61.6 (>50%) M-Mode DIMENSIONS Aortic Root3.60 (2.2-3.7cm)Aortic Cusp Exc.1.80 (1.5-2.0cm) Aortic Valve AoV Peak Aetzqwkm003.0cm/Marcella Peak GR.9mmHg Mitral Valve MV E Mytaaapl572.0cm/sMV A Udinmaku919.0cm/sE/A ratio0.8 TDI Lateral E' Peak V6.73cm/sMedial E' Peak V7.80cm/sE/Lateral E'17.8 E/Medial E'15.4 Pulmonary Valve PV Peak Uosluyvw97.3cm/sPV Peak Grad.4mmHg Tricuspid Valve TR Peak Iszmhlfv102ga/sRAP [id number] Peak Gr.31mmHg [id number] LEFT VENTRICLE The left ventricle is normal size. There is borderline concentric left ventricular hypertrophy. The left ventricular function is normal. The left ventricular ejection fraction is within the normal range. There is normal LV segmental wall motion. Transmitral Doppler flow pattern is Grade I-abnormal relaxation pattern. RIGHT VENTRICLE The right ventricle is normal size. There is normal right ventricular wall thickness. The right ventricular systolic function is normal. ATRIA The left atrium is borderline dilated. The right atrium size is normal. AORTIC VALVE The aortic valve is normal in structure. No aortic regurgitation is present. There is no aortic valvular stenosis. MITRAL VALVE The mitral valve is normal in structure. There is no mitral valve regurgitation noted. There is no mitral valve stenosis. TRICUSPID VALVE There is mild tricuspid regurgitation. There is mild pulmonary hypertension. PULMONIC VALVE There is trace pulmonic valvular regurgitation. GREAT VESSELS The aortic root is normal in size. The IVC is normal in size and collapses >50% with inspiration. PERICARDIAL EFFUSION There is no pericardial effusion. <Conclusion> The left ventricle is normal size. There is borderline concentric left ventricular hypertrophy. The left ventricular function is normal. The left ventricular ejection fraction is within the normal range. There is normal LV segmental wall motion. Transmitral Doppler flow pattern is Grade I-abnormal relaxation pattern. There is mild tricuspid regurgitation. There is mild pulmonary hypertension.
--- NOTE | 2018-05-25 16:52 | HP ---
DATE OF EXAM: HISTORY OF PRESENT ILLNESS: The patient is 73 years old, who states for the last couple of days, he was not feeling well. He did not have any appetite, so he stopped taking his metformin because of abdominal discomfort, so he was having generalized weakness to the point that family has to bring him to the emergency room for further evaluation. The patient complains of having decreased appetite, having urinary urgency and incontinence and the patient states he did not have any fever or chills at home and he did not have any hematuria or hematemesis. PAST MEDICAL HISTORY: Significant for: 1. Hypertension. 2. Oxn-sosvdcc-yqhygfaot diabetes. ALLERGIES: HE IS NOT ALLERGIC TO ANY MEDICATION. MEDICATIONS AT HOME: He is on Norvasc 10 mg daily, metformin 1000 twice a day. He has never seen any doctor in [facility]. He gets his medication from [facility]; however, his comes to my office for her medical care. SOCIAL HISTORY: He is , lives with his . He never worked in the [employer] either. REVIEW OF SYSTEMS: Significant for generalized weakness, loss of appetite and not feeling well. PHYSICAL EXAMINATION: GENERAL: He is awake, alert, oriented, communicative. VITAL SIGNS: He is afebrile, pulse 93, respirations 18, blood pressure 147/81. LUNGS: Bilateral fair airflow. No rhonchi or crackles. HEART: S1 and S2 audible. ABDOMEN: Soft, nontender. No rebound, no guarding. NEUROLOGIC: The patient is awake, alert, oriented, communicative. Bilateral leg, no edema. LABORATORY EXAM: WBC 9.8, hemoglobin 11, hematocrit 33.8, platelets 200. His D-dimer is 1633, PT 13.5. Chemistry: Sodium 141, potassium 3.3, chloride 108, CO2 26, BUN 19, creatinine 2.1, blood sugar of 374. Troponin 0.57, triglycerides 229. Urinalysis shows moderate blood. Stool test is negative. ASSESSMENT AND PLAN: 1. Uncontrolled diabetes and hyperglycemia. 2. History of hypertension. 3. Renal insufficiency, probably diabetic nephropathy. 4. Dehydration. PLAN: We will start the patient on IV fluids, will get echocardiogram to see LV function. I will request Dr. Tessie Anglin to evaluate the patient. I will order for CT scan of the abdomen and pelvis with p.o. contrast and will follow up , follow up blood sugar, and follow up the patient in a.m. Kyle Gama MD (Delete this signature block when dictator is a preceptor.) [facility] # [id number]
[2018-05-25] MEDS: Insulin Lispro (humaLOG) LOW Coverage SC SCH ×2 (17:48→22:27)
[2018-05-25] MEDS: Insulin Lispro 1 UNITS/0.01 ML SC SCH (17:51)
--- NOTE | 2018-05-25 18:48 | CON ---
ENDOCRINOLOGY CONSULT DATE OF CONSULTATION: 05/25/2018 LOCATION: Room 268. HISTORY OF PRESENT ILLNESS: This is a 73-year-old male with known history of type 2 diabetes and hypertension, controlled on oral hypoglycemic therapy, presenting here with generalized body weakness and supervening dizziness and lightheadedness with suboptimal energy level and was found to have marked hyperglycemic accelerations and is being referred now for further diabetic evaluation and management. PAST MEDICAL HISTORY: History of type 2 diabetes, currently on metformin given as 1 g b.i.d.; history of hypertension and dyslipidemia. FAMILY HISTORY: Positive for hypertension and diabetes. SOCIAL HISTORY: The patient has supportive family. No known substance use. REVIEW OF SYSTEMS: Admits to generalized body weakness, progressive bouts of dizziness and lightheadedness, worse in the last few days prior to admission. Also admits to bifrontal headaches with marked diaphoresis and insomnia as noted thereof. No chest pains or palpitations, but admits to episodic shortness of breath especially on exertion. His oral intake has been variable with nausea, dyspepsia and vague upper abdominal pain. Also admits to marked polyuria, nocturia, polydipsia. PHYSICAL EXAMINATION: GENERAL: This is an average built male in no apparent distress. VITAL SIGNS: Blood pressure of 140/80, pulse of 100 beats per minute and regular, temperature 98, respirations 20, height is 55, weight is 160 pounds. HEENT: Head normocephalic. Eyes anicteric with pink conjunctivae. Funduscopy not possible at this time. Ears, nose and throat otherwise normal. NECK: Supple. Thyroid gland is normal in size. No carotid bruits or any cervical adenopathy. CARDIOPULMONARY: Some adynamic precordium. S1, S2 is rapid and regular. LUNGS: Clear to auscultation. ABDOMEN: Flat, soft with positive bowel sounds. EXTREMITIES: No peripheral edema. Pulses are +2 bilaterally. LABORATORY DATA: On admission, chemistries, BUN of 24, sodium 137, potassium 3.7, chloride 99, CO2 of 25, glucose 860, and creatinine 2.3. His glucose levels have been extremely elevated, ranging from 398 to over 500 mg/dL. ASSESSMENT: This is a 73-year-old male with uncontrolled and decompensated type 2 insulin-requiring diabetes with marked hyperglycemic accelerations with possible underlying bacteremia and urosepsis, which could contribute to the increased insulin resistance and further impaired glucose tolerance thereof. However, the possibility of secondary pancreatic failure is also an important consideration because of the initial presentation of marked hyperglycemic accelerations despite oral hypoglycemic therapy as given. PLAN OF MANAGEMENT: We will initiate a more physiologic basal and bolus insulin regimen because of the marked glucose toxicity, which will definitely be helped by the initiation of insulin therapy as noted thereof. We will discontinue the metformin with the extremely elevated creatinine levels as noted. We will add Levemir given as 24 units subcu at bedtime daily to start tonight as ordered. We will add Humalog given as 8 units subcu t.i.d. before meals to start at dinnertime today as ordered. We will modify the coverage scale to obviate hypoglycemia and detailed orders have been given. We will initiate diabetic education to include insulin self-administration and home glucose monitoring as ordered. We will also consult dietary for nutritional counseling and healthier food choices. We will continue the IV hydration as given and obtain serial chemistries accordingly. We will obtain a serum C-peptide to assess his endogenous pancreatic reserve as noted. We will follow. Tessie Anglin MD
[2018-05-25] MEDS ORDERED: Insulin Detemir 100 units/ml Vial (Levemir) SC SCH (22:00)
[2018-05-26] MEDS: Sodium Chloride 0.9% 1,000 ML IV SCH ×2 (02:30→15:52)
[2018-05-26 07:17] LABS: BASO # 0.01 K/mm3 (0.0-2.0); BASO % 0.1 % (0.0-3.0); EOS % 0.1 % (1.5-5.0); GRAN # 11.28 (1.4-6.5); GRAN % 80.6 % (50.0-68.0); HEMOGLOBIN 9.7 g/dL (14.0-18.0); LYMPH # 1.6 (1.2-3.4); LYMPH % 11.1 % (22.0-35.0); MEAN CELL VOLUME 77.2 fl (80.0-105.0); MEAN CORPUSCULAR HGB CONC 33.7 g/dl (31.0-37.0); MEAN PLATELET VOLUME 11.6 fl (7.0-11.0); MONO # 1.1 (0.1-0.6); MONO % 8.1 % (1.0-6.0); RBC 3.73 10^6/uL (3.5-6.1); RED CELL DISTRIBUTION WIDTH 14.1 % (11.5-14.5)
[2018-05-26 08:03] LABS: FREE T4 1.7 ng/dL (0.78-2.19)
[2018-05-26 08:05] LABS: ALB/GLOB RATIO 0.9 (1.1-1.8); ALBUMIN 3.2 g/dL (3.0-4.8); CALCIUM 8.1 mg/dL (8.4-10.5)
[2018-05-26] MEDS ORDERED: Sodium Bicarbonate (8.4%) 50 Meq Syringe IVP ONE (08:39)
--- NOTE | 2018-05-26 08:43 | CP.PCM.HP ---
History of Present Illness - History of Present Illness History of Present Illness: PGY-[address] Mathew ID consult: Sepsis Mr Nicole, 73M, with PMHx HTN, DM2 c/o generalized weakness x 4 days. He had fever at home, diaphoresis, urinary urgency, urinary incontinence, vomit x 1 and loss of appetite. Vomiting was NBNB. Pt endorsed that he is compliant with meds. He did not get flu shot this year. In ED, EKG shows Sinus Tachycardia at 105 BPM. he was found to have BG 860, BUN/Cr 24/2.4 with Elevated trop 0.56, elevat ed lactate of 6.8, elevate blood sugars and elevated trop 0.57 and temp of 101.4 noted yesterday. ROS- (+) SOB, (+) diaphoresis denies Fever, chills, chest pain, palpitation, N/V/D/C, dysuria, abdominal or groin pain, incomplete sensation of bladder emptying, weak urine stream or prostate problem. PMH: HTN, DM2 PSH: denied FH: non contributory Soc Hx: denied alcohol, smoking, drug use NKDA Med: norvasc 10mg qd, metformin 1000mg bid Past Patient History - Infectious Disease Hx of Infectious Diseases: None - Past Social History Smoking Status: Never Smoked - CARDIAC Hx Cardiac Disorders: Yes Hx Hypertension: Yes - PULMONARY Hx Respiratory Disorders: No - NEUROLOGICAL Hx Neurological Disorder: No - HEENT Hx HEENT Problems: No - RENAL Hx Chronic Kidney Disease: No - ENDOCRINE/METABOLIC Hx Endocrine Disorders: Yes Hx Diabetes Mellitus Type 2: Yes - HEMATOLOGICAL/ONCOLOGICAL Hx Blood Disorders: No - INTEGUMENTARY Hx Dermatological Problems: No - MUSCULOSKELETAL/RHEUMATOLOGICAL Hx Musculoskeletal Disorders: No - GASTROINTESTINAL Hx Gastrointestinal Disorders: No - GENITOURINARY/GYNECOLOGICAL Hx Genitourinary Disorders: No - PSYCHIATRIC Hx Psychophysiologic Disorder: No Hx Substance Use: No - SURGICAL HISTORY Hx Surgeries: No - ANESTHESIA Hx Anesthesia: No Meds Allergies/Adverse Reactions: Allergies Allergy/AdvReac Type Severity Reaction Status Date / Time No Known Allergies Allergy Verified 05/24/18 23:50 Physical Exam - Constitutional Appears: No Acute Distress Additional comments: clammy - Head Exam Head Exam: ATRAUMATIC, NORMAL INSPECTION, NORMOCEPHALIC - Eye Exam Eye Exam: EOMI, Normal appearance. absent: PERRL, Scleral icterus Pupil Exam: NORMAL ACCOMODATION - ENT Exam ENT Exam: Mucous Membranes Moist - Neck Exam Additional comments: supple - Respiratory Exam Respiratory Exam: Clear to Auscultation Bilateral. absent: Rales, Rhonchi, Wheezes - Cardiovascular Exam Cardiovascular Exam: Tachycardia, REGULAR RHYTHM, +S1, +S2 - GI/Abdominal Exam GI & Abdominal Exam: Normal Bowel Sounds. absent: Distended, Firm, Guarding, Rebound Additional comments: (+) supra pubic tenderness - Extremities Exam Extremities exam: Positive for: pedal pulses present. Negative for: calf tenderness - Back Exam Back exam: absent: CVA tenderness (L), CVA tenderness (R) - Neurological Exam Neurological exam: Alert, Oriented x3 - Psychiatric Exam Psychiatric exam: Normal Affect, Normal Mood - Skin Skin Exam: Warm Additional comments: clammy Results - Vital Signs Recent Vital Signs: Last Vital Signs Temp 98.3 F 05/26/18 06:00 Pulse 115 H 05/26/18 06:00 Resp 18 05/26/18 06:00 BP 142/81 05/26/18 06:00 Pulse Ox 95 05/26/18 06:00 - Labs Result Diagrams: 05/26/18 06:30 05/26/18 12:00 Labs: Laboratory Results - last 24 hr 05/25/18 05/25/18 05/25/18 06:00 07:42 11:05 WBC RBC Hgb Hct MCV MCH MCHC RDW Plt Count MPV Gran % Lymph % (Auto) [place] % (Auto) Eos % (Auto) Baso % (Auto) Gran # Lymph # (Auto) [place] # (Auto) Eos # (Auto) Baso # (Auto) PT 13.5 H INR 1.17 APTT 32.7 D-Dimer, Quantitative Sodium Potassium Chloride Carbon Dioxide Anion Gap BUN Creatinine Est GFR ( Amer) Est GFR (Non-Af Amer) POC Glucose (mg/dL) 381 H Random Glucose Calcium Magnesium Total Bilirubin AST ALT Alkaline Phosphatase Troponin I Total Protein Albumin Globulin Albumin/Globulin Ratio Triglycerides 229 H Cholesterol 119 L LDL Cholesterol Direct 55 HDL Cholesterol 24 L Prostate Specific Ag Procalcitonin Free T4 TSH 3rd Generation 05/25/18 05/25/18 05/25/18 11:16 11:38 11:40 WBC RBC Hgb Hct MCV MCH MCHC RDW Plt Count MPV Gran % Lymph % (Auto) [place] % (Auto) Eos % (Auto) Baso % (Auto) Gran # Lymph # (Auto) [place] # (Auto) Eos # (Auto) Baso # (Auto) PT INR APTT D-Dimer, Quantitative 1633 H Sodium Potassium Chloride Carbon Dioxide Anion Gap BUN Creatinine Est GFR ( Amer) Est GFR (Non-Af Amer) POC Glucose (mg/dL) 376 H Random Glucose Calcium Magnesium Total Bilirubin AST ALT Alkaline Phosphatase Troponin I Total Protein Albumin Globulin Albumin/Globulin Ratio Triglycerides Cholesterol LDL Cholesterol Direct HDL Cholesterol Prostate Specific Ag Procalcitonin 0.17 L Free T4 TSH 3rd Generation 05/25/18 05/25/18 05/25/18 12:04 17:11 18:34 WBC RBC Hgb Hct MCV MCH MCHC RDW Plt Count MPV Gran % Lymph % (Auto) [place] % (Auto) Eos % (Auto) Baso % (Auto) Gran # Lymph # (Auto) [place] # (Auto) Eos # (Auto) Baso # (Auto) PT INR APTT 83.1 H D-Dimer, Quantitative Sodium Potassium Chloride Carbon Dioxide Anion Gap BUN Creatinine Est GFR ( Amer) Est GFR (Non-Af Amer) POC Glucose (mg/dL) 193 H Random Glucose Calcium Magnesium Total Bilirubin AST ALT Alkaline Phosphatase Troponin I 0.58 H* Total Protein Albumin Globulin Albumin/Globulin Ratio Triglycerides Cholesterol LDL Cholesterol Direct HDL Cholesterol Prostate Specific Ag Procalcitonin Free T4 TSH 3rd Generation 05/26/18 05/26/18 05/26/18 00:55 06:30 06:30 WBC 14.0 H D RBC 3.73 Hgb 9.7 L Hct 28.8 L MCV 77.2 L D MCH 26.0 MCHC 33.7 RDW 14.1 Plt Count 175 MPV 11.6 H Gran % 80.6 H Lymph % (Auto) 11.1 L [place] % (Auto) 8.1 H Eos % (Auto) 0.1 L Baso % (Auto) 0.1 Gran # 11.28 H Lymph # (Auto) 1.6 [place] # (Auto) 1.1 H Eos # (Auto) 0.0 Baso # (Auto) 0.01 PT INR APTT 64.0 H D-Dimer, Quantitative Sodium 144 Potassium 3.3 L Chloride 109 H Carbon Dioxide 26 Anion Gap 11 BUN 13 Creatinine 1.7 H Est GFR ( Amer) 48 Est GFR (Non-Af Amer) 40 POC Glucose (mg/dL) Random Glucose 72 Calcium 8.1 L Magnesium 1.6 L Total Bilirubin 0.8 AST 88 H D ALT 50 Alkaline Phosphatase 121 Troponin I Total Protein 7.0 Albumin 3.2 Globulin 3.7 Albumin/Globulin Ratio 0.9 L Triglycerides Cholesterol LDL Cholesterol Direct HDL Cholesterol Prostate Specific Ag Procalcitonin Free T4 TSH 3rd Generation 05/26/18 05/26/18 05/26/18 06:30 06:30 07:41 WBC RBC Hgb Hct MCV MCH MCHC RDW Plt Count MPV Gran % Lymph % (Auto) [place] % (Auto) Eos % (Auto) Baso % (Auto) Gran # Lymph # (Auto) [place] # (Auto) Eos # (Auto) Baso # (Auto) PT INR APTT 40.3 H D-Dimer, Quantitative Sodium Potassium Chloride Carbon Dioxide Anion Gap BUN Creatinine Est GFR ( Amer) Est GFR (Non-Af Amer) POC Glucose (mg/dL) 83 Random Glucose Calcium Magnesium Total Bilirubin AST ALT Alkaline Phosphatase Troponin I Total Protein Albumin Globulin Albumin/Globulin Ratio Triglycerides Cholesterol LDL Cholesterol Direct HDL Cholesterol Prostate Specific Ag 1.1 Procalcitonin Free T4 1.70 TSH 3rd Generation 1.63 Assessment & Plan - Assessment and Plan (Free Text) Plan: Possible Sepsis 2/2 Gram negative Fabrice bacteremia with MODS including LIANE, HHS, transaminitis, NSTEMI Sources may be . No GI complaints Lactic acidosis probably from metformin vs sepsis Hyperosmolar hyperglycemia LIANE Elevated CK 400 Elevated D-dimer. Had ruled out PE by V/Q - strict i/o. bladder scan prn. CT abdomen and pelvis to investigate infection sources. Get psa level - Vanco and aztreoman x 1. Now Merem (day 1). Follow blood and urine culture. flu screen negative. - Cardiac cath revealed triple vessel disease with normal LVEF. He will be transferred to [facility] in [place] for bypass surgery Imaging: - CXR: Vascular congestion and patchy bilateral infiltrates s/r/d/w Dr. Mathew
[2018-05-26] MEDS: Heparin25000 units/250ml 1/2NS 25,000 UNITS/250 ML BAG IV SCH (09:33)
[2018-05-26] MEDS ORDERED: Heparin25000 units/250ml 1/2NS 25,000 UNITS/250 ML BAG IV SCH (09:45)
[2018-05-26] MEDS ORDERED: Meropenem IV 1 gm in NS 1 GM/50 ML BAG IVPB SCH (10:00)
[2018-05-26] MEDS ORDERED: Potassium Chloride 20 mEq ER Tab PO ONE (10:03)
[2018-05-26] MEDS: Insulin Lispro (humaLOG) LOW Coverage SC SCH ×2 (10:24→17:14)
[2018-05-26] MEDS: Insulin Lispro 1 UNITS/0.01 ML SC SCH ×2 (10:24→15:51)
[2018-05-26] MEDS ORDERED: Lidocaine 2% Inj (20ml) ONE (11:47)
[2018-05-26] MEDS ORDERED: Iodixanol 320 MG/ML 200 ML BOTTLE IV ONE (11:48)
[2018-05-26] MEDS ORDERED: Iohexol 350mgl/ml 50 ML ONE (11:48)
[2018-05-26] MEDS ORDERED: Midazolam 2 MG/2 ML VIAL ONE (11:57)
[2018-05-26] MEDS ORDERED: Nitroglycerin 2% Ointment Foilpak UD TOP ONE (12:16)
[2018-05-26] MEDS ORDERED: Magnesium Sulfate 1 gm in D5W 1 GM/100 ML BAG IV ONE (12:17)
[2018-05-26] MEDS ORDERED: Nitroglycerin 50mg in D5W 50 MG/250 ML BOTTLE IV ONE (12:18)
[2018-05-26] MEDS: Flumazenil 0.1 mg/ml Inj (5ml) IVP ONE ×2 (12:20→15:53)
[2018-05-26] MEDS ORDERED: Naloxone 0.4 mg/ml Inj (Adult) ONE (12:21)
--- NOTE | 2018-05-26 12:34 | CP.PCM.PCO ---
Physician Communication Note - Physician Communication Note Physician Communication Note: gm negative alice bacteremia continue abx as per ID
[2018-05-26 12:38] LABS: ALB/GLOB RATIO 0.9 (1.1-1.8); ALBUMIN 3.2 g/dL (3.0-4.8); CALCIUM 7.9 mg/dL (8.4-10.5)
[2018-05-26] MEDS ORDERED: Potassium Chloride 20 mEq/15 ml LIQ UD PO STA (12:58)
--- NOTE | 2018-05-26 13:49 | CARDCATH ---
PROCEDURE DATE: 05/26/2018 HISTORY: The patient is a 73-year-old male who presented with elevated troponins consistent with a non-STEMI. His symptoms were nausea and vomiting. His cardiac risk factors include hypertension and hypercholesterolemia. Initially, his troponin was 0.57 with a creatinine of 2.1. His glucose was 447. After aggressive hydration, the creatinine was down to 1.7 and down to finally 1.4 today prior to his procedure. Because of his non-STEMI and his multiple cardiac risk factors, a cardiac catheterization was recommended. PROCEDURE: Left heart catheterization with coronary arteriography and left ventriculogram and supra-aortic valvular injection. The right femoral artery was cannulated with 6-Maori sheath. There were no complications. I performed moderate sedation which included the presence of an independent trained observer that assisted in monitoring the patient's level of consciousness and physiologic status. After administration of Versed and fentanyl, my intra-service time was 30 minutes. The patient's pulse oximetry decreased to 90 after giving fentanyl and Versed, this was reversed with Narcan and Romazicon. The findings on catheterization revealed a left ventricle that contracted normally. Estimated ejection fraction of 60%. Supra-aortic valvular injection revealed no aortic insufficiency. The patient's coronary anatomy revealed a right dominant circulation. The RCA revealed diffuse atherosclerosis with a 90% stenosis in the proximal/midportion of the PDA. The left main artery was unremarkable. The LAD was occluded in its midportion. The diagonal vessel revealed 50% to 60% stenoses. The circumflex artery revealed an eccentric 70% stenoses in its ostium, at the takeoff of the left main artery. Angio-Seal was used to close the femoral artery site. The patient tolerated the procedure well. SUMMARY: The procedure revealed: 1. Triple-vessel coronary artery disease. 2. Normal left ventricular function. 3. No aortic insufficiency. 4. Renal insufficiency which is better after aggressive hydration. 5. Diabetes mellitus. 6. Hypertension. 7. Hypercholesterolemia. PLAN: The patient's respiratory compromise was reversed with Narcan and Romazicon. We will transfer the patient to the ICU for monitoring for the next 24 hours. Arrangements have been made for the patient to undergo bypass surgery. He will be transferred to [facility] once the bed is available. Donta Garcia MD [facility] # [id number]
[2018-05-26 13:52] LABS: ARTERIAL BLOOD GAS HCO3 25.7 mmol/L (21-28); ARTERIAL BLOOD GAS HEMOGLOBIN 9.5 g/dL (11.7-17.4); ARTERIAL BLOOD GAS O2 CAPACITY 13.1 mL/dl (16-24); ARTERIAL BLOOD GAS O2 CONTENT 12.9 ML/dl (15-23); ARTERIAL BLOOD GAS O2 SAT 98.6 % (95-98); ARTERIAL BLOOD GAS PCO2 37 mm/Hg (35-45); ARTERIAL BLOOD GAS PH 7.45 (7.35-7.45); ARTERIAL BLOOD GAS TCO2 26.8 mmol.L (22-28)
--- NOTE | 2018-05-26 14:06 | RAD ---
Date of service: 05/26/2018 HISTORY: SOB COMPARISON: 05/25/2018 FINDINGS: LUNGS: Vascular congestion and patchy bilateral infiltrates PLEURA: No significant pleural effusion identified, no pneumothorax apparent. CARDIOVASCULAR: Aortic calcification Moderate cardiomegaly no pulmonary vascular congestion. OSSEOUS STRUCTURES: No significant abnormalities. VISUALIZED UPPER ABDOMEN: Normal. OTHER FINDINGS: None. IMPRESSION: Vascular congestion and patchy bilateral infiltrates
--- NOTE | 2018-05-26 14:25 | CP.PCM.CON ---
<Popeye Silva - Last Filed: 05/26/18 14:45> History of Present Illness - History of Present Illness History of Present Illness: Popeye Silva, PGY-1 Consult Note for ICU CC: Apneic episode during cardiac catheterization HPI: 73 year old male with PMHx of HTN and DMII initially presented on with weakness, nausea and vomiting. Patient was found to have an NSTEMI and was taken to the cath-lab. Patient was found to have triple vessel disease and will require surgery per Dr. Carrington recommendations with Dr. Adam in [place]. Patient became apneic in the cardiac cath suit, desaturating to 90% after receiving Fentanyl and Versed. Patient was reversed with narcan and romazicon and ICU consult was placed. Patient is presently complaining of decreased shortness of breath. Patient denies headache, blurry vision, chest pain, palpitations, numbness and tingling. 12 point ROS negative unless stated in HPI. PMD: Dr. Gama PMHx: DM2 and HTN PSH: denies Alg: NKDA Medications: Norvasc 10 mg daily, Metformin 1000 mg BID Soc Hx: denies alcohol, tobacco, recreational drug use Review of Systems - Review of Systems Review of Systems: 12 point ROS completed and negative except as described in HPI. Past Patient History - Infectious Disease Hx of Infectious Diseases: None - Past Social History Smoking Status: Never Smoked - CARDIAC Hx Cardiac Disorders: Yes Hx Hypertension: Yes - PULMONARY Hx Respiratory Disorders: No - NEUROLOGICAL Hx Neurological Disorder: No - HEENT Hx HEENT Problems: No - RENAL Hx Chronic Kidney Disease: No - ENDOCRINE/METABOLIC Hx Endocrine Disorders: Yes Hx Diabetes Mellitus Type 2: Yes - HEMATOLOGICAL/ONCOLOGICAL Hx Blood Disorders: No - INTEGUMENTARY Hx Dermatological Problems: No - MUSCULOSKELETAL/RHEUMATOLOGICAL Hx Musculoskeletal Disorders: No - GASTROINTESTINAL Hx Gastrointestinal Disorders: No - GENITOURINARY/GYNECOLOGICAL Hx Genitourinary Disorders: No - PSYCHIATRIC Hx Psychophysiologic Disorder: No Hx Substance Use: No - SURGICAL HISTORY Hx Surgeries: No - ANESTHESIA Hx Anesthesia: No Meds Allergies/Adverse Reactions: Allergies Allergy/AdvReac Type Severity Reaction Status Date / Time No Known Allergies Allergy Verified 05/24/18 23:50 - Medications Medications: Current Medications Acetaminophen (Tylenol 325mg Tab) 650 mg PO Q4H PRN PRN Reason: Fever >100.5 F Amlodipine Besylate (Norvasc) 10 mg PO DAILY [facility] Last Admin: 05/25/18 10:42 Dose: 10 mg Glimepiride (Amaryl) 4 mg PO DAILY [facility] Last Admin: 05/25/18 10:42 Dose: 4 mg Meropenem (Merrem Iv 1 Gm Premix) 1 gm in 50 mls @ 100 mls/hr IVPB Q12 [facility]; Protocol Stop: 06/02/18 10:01 Heparin Sodium/Sodium Chloride (Heparin 66580 Units/250ml 1/2 Normal Saline) 25,000 units in 250 mls @ 9.986 mls/hr IV .Q24H [facility]; Protocol Potassium Chloride (Potassium Chloride 10 Meq/100 Ml) 10 meq in 100 mls @ 50 mls/hr IVPB Q2H [facility] Stop: 05/26/18 14:29 Insulin Detemir (Levemir) 24 unit SC HS [facility] Last Admin: 05/25/18 23:13 Dose: 12 unit Insulin Human Lispro (Humalog Low) 0 units SC ACHS [facility]; Protocol Last Admin: 05/26/18 10:24 Dose: Not Given Insulin Human Lispro (Humalog) 8 units SC AC [facility] Last Admin: 05/26/18 10:24 Dose: Not Given Ondansetron HCl (Zofran Inj) 4 mg IVP Q6H PRN PRN Reason: Nausea/Vomiting Physical Exam - Additional Findings Additional findings: - Constitutional Appears: Well, No Acute Distress - Head Exam Head Exam: ATRAUMATIC, NORMAL INSPECTION, NORMOCEPHALIC - Eye Exam Eye Exam: EOMI, Normal appearance, PERRL Pupil Exam: NORMAL ACCOMODATION, PERRL - ENT Exam ENT Exam: Mucous Membranes Dry - Neck Exam Neck exam: Positive for: Normal Inspection - Respiratory Exam Respiratory Exam: Rales bilaterally, NORMAL BREATHING PATTERN - Cardiovascular Exam Cardiovascular Exam: Tachycardia, REGULAR RHYTHM, +S1, +S2. absent: Gallop, Rubs - GI/Abdominal Exam GI & Abdominal Exam: Normal Bowel Sounds, Soft. absent: Tenderness - Extremities Exam Extremities exam: Positive for: normal capillary refill, normal inspection, pedal pulses present - Back Exam Back exam: NORMAL INSPECTION. absent: CVA tenderness (L), CVA tenderness (R) - Neurological Exam Neurological exam: Alert, CN II-XII Intact, Normal Gait, Oriented x3, Reflexes N ormal - Psychiatric Exam Psychiatric exam: Normal Affect, Normal Mood - Skin Skin Exam: Diaphoretic, Intact, Warm Results - Vital Signs Recent Vital Signs: Last Vital Signs Temp 98.3 F 05/26/18 06:00 Pulse 115 H 05/26/18 06:00 Resp 18 05/26/18 06:00 BP 142/81 05/26/18 06:00 Pulse Ox 95 05/26/18 06:00 - Labs Result Diagrams: 05/26/18 06:30 05/26/18 12:00 Labs: Laboratory Results - last 24 hr 05/25/18 05/25/18 05/25/18 11:38 17:11 18:34 WBC RBC Hgb Hct MCV MCH MCHC RDW Plt Count MPV Gran % Lymph % (Auto) Kendall % (Auto) Eos % (Auto) Baso % (Auto) Gran # Lymph # (Auto) Kendall # (Auto) Eos # (Auto) Baso # (Auto) APTT 83.1 H pCO2 pO2 HCO3 ABG pH ABG Total CO2 ABG O2 Saturation ABG O2 Content ABG Base Excess ABG Hemoglobin ABG Carboxyhemoglobin POC ABG HHb (Measured) ABG Methemoglobin ABG O2 Capacity Hgb O2 Saturation FiO2 Sodium Potassium Chloride Carbon Dioxide Anion Gap BUN Creatinine Est GFR ( Amer) Est GFR (Non-Af Amer) POC Glucose (mg/dL) 193 H Random Glucose Calcium Magnesium Total Bilirubin AST ALT Alkaline Phosphatase Total Protein Albumin Globulin Albumin/Globulin Ratio Prostate Specific Ag Procalcitonin 0.17 L Free T4 TSH 3rd Generation 05/26/18 05/26/18 05/26/18 00:55 06:30 06:30 WBC 14.0 H D RBC 3.73 Hgb 9.7 L Hct 28.8 L MCV 77.2 L D MCH 26.0 MCHC 33.7 RDW 14.1 Plt Count 175 MPV 11.6 H Gran % 80.6 H Lymph % (Auto) 11.1 L Kendall % (Auto) 8.1 H Eos % (Auto) 0.1 L Baso % (Auto) 0.1 Gran # 11.28 H Lymph # (Auto) 1.6 Kendall # (Auto) 1.1 H Eos # (Auto) 0.0 Baso # (Auto) 0.01 APTT 64.0 H pCO2 pO2 HCO3 ABG pH ABG Total CO2 ABG O2 Saturation ABG O2 Content ABG Base Excess ABG Hemoglobin ABG Carboxyhemoglobin POC ABG HHb (Measured) ABG Methemoglobin ABG O2 Capacity Hgb O2 Saturation FiO2 Sodium 144 Potassium 3.3 L Chloride 109 H Carbon Dioxide 26 Anion Gap 11 BUN 13 Creatinine 1.7 H Est GFR ( Amer) 48 Est GFR (Non-Af Amer) 40 POC Glucose (mg/dL) Random Glucose 72 Calcium 8.1 L Magnesium 1.6 L Total Bilirubin 0.8 AST 88 H D ALT 50 Alkaline Phosphatase 121 Total Protein 7.0 Albumin 3.2 Globulin 3.7 Albumin/Globulin Ratio 0.9 L Prostate Specific Ag Procalcitonin Free T4 TSH 3rd Generation 05/26/18 05/26/18 05/26/18 06:30 06:30 07:41 WBC RBC Hgb Hct MCV MCH MCHC RDW Plt Count MPV Gran % Lymph % (Auto) Kendall % (Auto) Eos % (Auto) Baso % (Auto) Gran # Lymph # (Auto) Kendall # (Auto) Eos # (Auto) Baso # (Auto) APTT 40.3 H pCO2 pO2 HCO3 ABG pH ABG Total CO2 ABG O2 Saturation ABG O2 Content ABG Base Excess ABG Hemoglobin ABG Carboxyhemoglobin POC ABG HHb (Measured) ABG Methemoglobin ABG O2 Capacity Hgb O2 Saturation FiO2 Sodium Potassium Chloride Carbon Dioxide Anion Gap BUN Creatinine Est GFR ( Amer) Est GFR (Non-Af Amer) POC Glucose (mg/dL) 83 Random Glucose Calcium Magnesium Total Bilirubin AST ALT Alkaline Phosphatase Total Protein Albumin Globulin Albumin/Globulin Ratio Prostate Specific Ag 1.1 Procalcitonin Free T4 1.70 TSH 3rd Generation 1.63 05/26/18 05/26/18 12:00 13:49 WBC RBC Hgb Hct MCV MCH MCHC RDW Plt Count MPV Gran % Lymph % (Auto) Kendall % (Auto) Eos % (Auto) Baso % (Auto) Gran # Lymph # (Auto) Kendall # (Auto) Eos # (Auto) Baso # (Auto) APTT pCO2 37 pO2 94.0 HCO3 25.7 ABG pH 7.45 ABG Total CO2 26.8 ABG O2 Saturation 98.6 H ABG O2 Content 12.9 L ABG Base Excess 1.7 ABG Hemoglobin 9.5 L ABG Carboxyhemoglobin 1.9 H POC ABG HHb (Measured) 1.4 ABG Methemoglobin 0.9 ABG O2 Capacity 13.1 L Hgb O2 Saturation 95.7 FiO2 100.0 Sodium 145 Potassium 3.3 L Chloride 110 H Carbon Dioxide 28 Anion Gap 10 BUN 13 Creatinine 1.4 Est GFR ( Amer) 60 Est GFR (Non-Af Amer) 50 POC Glucose (mg/dL) Random Glucose 99 Calcium 7.9 L Magnesium Total Bilirubin 1.0 AST 95 H ALT 48 Alkaline Phosphatase 122 Total Protein 6.6 Albumin 3.2 Globulin 3.5 Albumin/Globulin Ratio 0.9 L Prostate Specific Ag Procalcitonin Free T4 TSH 3rd Generation Assessment & Plan - Assessment and Plan (Free Text) Assessment: Patient is a 73 M with PMHx of HTN and DMII presenting with nausea and vomiting. Patient found to have an NSTEMI and triple vessel disease on cardiac cath. 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 Patient is cur rently in ICU for stabilization and observation until he is safe to be transferred to Dr. Aviva alonzo in [place] for surgery. Neuro: AAOx3 No confusion, dizziness, visual disturbances, hearing changes Pulm: SOB likely due to fluid overload CXR 05/25 on admission showed no active disease V/Q scan on admission showed low probability for PE CXR 05/26 showed vascular congestion and bilateral patchy infiltrates Start BiPAP 05/13/60% Lasix 40mg given Monitor I/Os Cardio: H/H presently 9.7/28.8 trending down, continue to monitor Trops trending up, most recently: 0.58, NSTEMI EKG showed sinus tach @ 111 Cardiac Cath showed triple vessel disease Continue Norvasc 10mg Tylenol 650mg q4 PRN Aspirin 81mg daily Dr. Garcia on board for Cardiology - R femoral cardiac cath procedure showing tr iple vessel disease - f/u final report. Post cath care orders noted. ID: Dr. Mathew on board for ID CT abdomen and pelvis ordered Meropenem 1gm ENDO: Discontinue metformin Start sliding scale insulin Continue Glimepiride 4mg daily F/u A1c Nephro: F/U renal U/S Replete electrolytes as needed PPX: DVT ppx - SCDs GI ppx - protonix, Zofran PRN Diet - Heart Healthy Diet Patient seen, case reviewed and plan approved by Dr. Bonner. Popeye Silva, PGY-1 <Rosalio Bonner - Last Filed: 05/26/18 16:26> Meds - Medications Medications: Current Medications Acetaminophen (Tylenol 325mg Tab) 650 mg PO Q4H PRN PRN Reason: Fever >100.5 F Amlodipine Besylate (Norvasc) 10 mg PO DAILY [facility] Last Admin: 05/26/18 15:37 Dose: Not Given Meropenem (Merrem Iv 1 Gm Premix) 1 gm in 50 mls @ 100 mls/hr IVPB Q12 [facility]; Protocol Stop: 06/02/18 10:01 Last Admin: 05/26/18 15:36 Dose: Not Given Heparin Sodium/Sodium Chloride (Heparin 52508 Units/250ml 1/2 Normal Saline) 25,000 units in 250 mls @ 9.986 mls/hr IV .Q24H [facility]; Protocol Insulin Detemir (Levemir) 20 unit SC HS [facility] Insulin Human Lispro (Humalog Low) 0 units SC ACHS [facility]; Protocol Last Admin: 05/26/18 10:24 Dose: Not Given Insulin Human Lispro (Humalog) 6 units SC AC [facility] Ondansetron HCl (Zofran Inj) 4 mg IVP Q6H PRN PRN Reason: Nausea/Vomiting Results - Vital Signs Recent Vital Signs: Last Vital Signs Temp 98.3 F 05/26/18 06:00 Pulse 115 H 05/26/18 06:00 Resp 18 05/26/18 06:00 BP 142/81 05/26/18 06:00 Pulse Ox 95 05/26/18 06:00 - Labs Result Diagrams: 05/26/18 06:30 05/26/18 12:00 Labs: Laboratory Results - last 24 hr 05/25/18 05/25/18 05/25/18 11:38 17:11 18:34 WBC RBC Hgb Hct MCV MCH MCHC RDW Plt Count MPV Gran % Lymph % (Auto) Kendall % (Auto) Eos % (Auto) Baso % (Auto) Gran # Lymph # (Auto) Kendall # (Auto) Eos # (Auto) Baso # (Auto) APTT 83.1 H pCO2 pO2 HCO3 ABG pH ABG Total CO2 ABG O2 Saturation ABG O2 Content ABG Base Excess ABG Hemoglobin ABG Carboxyhemoglobin POC ABG HHb (Measured) ABG Methemoglobin ABG O2 Capacity Hgb O2 Saturation FiO2 Sodium Potassium Chloride Carbon Dioxide Anion Gap BUN Creatinine Est GFR ( Amer) Est GFR (Non-Af Amer) POC Glucose (mg/dL) 193 H Random Glucose Calcium Magnesium Total Bilirubin AST ALT Alkaline Phosphatase Total Protein Albumin Globulin Albumin/Globulin Ratio Prostate Specific Ag Procalcitonin 0.17 L Free T4 TSH 3rd Generation 05/26/18 05/26/18 05/26/18 00:55 06:30 06:30 WBC 14.0 H D RBC 3.73 Hgb 9.7 L Hct 28.8 L MCV 77.2 L D MCH 26.0 MCHC 33.7 RDW 14.1 Plt Count 175 MPV 11.6 H Gran % 80.6 H Lymph % (Auto) 11.1 L Kendall % (Auto) 8.1 H Eos % (Auto) 0.1 L Baso % (Auto) 0.1 Gran # 11.28 H Lymph # (Auto) 1.6 Kendall # (Auto) 1.1 H Eos # (Auto) 0.0 Baso # (Auto) 0.01 APTT 64.0 H pCO2 pO2 HCO3 ABG pH ABG Total CO2 ABG O2 Saturation ABG O2 Content ABG Base Excess ABG Hemoglobin ABG Carboxyhemoglobin POC ABG HHb (Measured) ABG Methemoglobin ABG O2 Capacity Hgb O2 Saturation FiO2 Sodium 144 Potassium 3.3 L Chloride 109 H Carbon Dioxide 26 Anion Gap 11 BUN 13 Creatinine 1.7 H Est GFR ( Amer) 48 Est GFR (Non-Af Amer) 40 POC Glucose (mg/dL) Random Glucose 72 Calcium 8.1 L Magnesium 1.6 L Total Bilirubin 0.8 AST 88 H D ALT 50 Alkaline Phosphatase 121 Total Protein 7.0 Albumin 3.2 Globulin 3.7 Albumin/Globulin Ratio 0.9 L Prostate Specific Ag Procalcitonin Free T4 TSH 3rd Generation 05/26/18 05/26/18 05/26/18 06:30 06:30 07:41 WBC RBC Hgb Hct MCV MCH MCHC RDW Plt Count MPV Gran % Lymph % (Auto) Kendall % (Auto) Eos % (Auto) Baso % (Auto) Gran # Lymph # (Auto) Kendall # (Auto) Eos # (Auto) Baso # (Auto) APTT 40.3 H pCO2 pO2 HCO3 ABG pH ABG Total CO2 ABG O2 Saturation ABG O2 Content ABG Base Excess ABG Hemoglobin ABG Carboxyhemoglobin POC ABG HHb (Measured) ABG Methemoglobin ABG O2 Capacity Hgb O2 Saturation FiO2 Sodium Potassium Chloride Carbon Dioxide Anion Gap BUN Creatinine Est GFR ( Amer) Est GFR (Non-Af Amer) POC Glucose (mg/dL) 83 Random Glucose Calcium Magnesium Total Bilirubin AST ALT Alkaline Phosphatase Total Protein Albumin Globulin Albumin/Globulin Ratio Prostate Specific Ag 1.1 Procalcitonin Free T4 1.70 TSH 3rd Generation 1.63 05/26/18 05/26/18 12:00 13:49 WBC RBC Hgb Hct MCV MCH MCHC RDW Plt Count MPV Gran % Lymph % (Auto) Kendall % (Auto) Eos % (Auto) Baso % (Auto) Gran # Lymph # (Auto) Kendall # (Auto) Eos # (Auto) Baso # (Auto) APTT pCO2 37 pO2 94.0 HCO3 25.7 ABG pH 7.45 ABG Total CO2 26.8 ABG O2 Saturation 98.6 H ABG O2 Content 12.9 L ABG Base Excess 1.7 ABG Hemoglobin 9.5 L ABG Carboxyhemoglobin 1.9 H POC ABG HHb (Measured) 1.4 ABG Methemoglobin 0.9 ABG O2 Capacity 13.1 L Hgb O2 Saturation 95.7 FiO2 100.0 Sodium 145 Potassium 3.3 L Chloride 110 H Carbon Dioxide 28 Anion Gap 10 BUN 13 Creatinine 1.4 Est GFR ( Amer) 60 Est GFR (Non-Af Amer) 50 POC Glucose (mg/dL) Random Glucose 99 Calcium 7.9 L Magnesium Total Bilirubin 1.0 AST 95 H ALT 48 Alkaline Phosphatase 122 Total Protein 6.6 Albumin 3.2 Globulin 3.5 Albumin/Globulin Ratio 0.9 L Prostate Specific Ag Procalcitonin Free T4 TSH 3rd Generation Assessment & Plan - Assessment and Plan (Free Text) Assessment: Patient seen and examined on rounds, agree with note with following additions/exceptions: Patient is 73 year old male with PMHx of HTN and DMII initially presented on 05/24/2018 with weakness, nausea and vomiting, found to have an NSTEMI Patient had cardiac cath today, which showed 3VD, awaiting transfer to [place] for CABG Patient during cath desaturated, after given Versed, Fentanyl CXR with volume overload, given Lasix 40mg IV x 1 Currently afebrile, BP stable, comfortable in NAD, adequate UOP CHF, acute decomp CAD s/p PCI, 3VD DM HTN Recommend: - supp o2 as needed, duonebs PRN - Abx as per ID - BP control - Nitro drip - Lasix 40mg IV BID - FS control - DC Glimeperide - ASA - GI ppx - DVT ppx - Awaiting transfer to [place] for CABG - Monitor in CCU
--- NOTE | 2018-05-26 15:02 | PN ---
DATE: 05/26/2018 SUBJECTIVE: The patient is a 73-year-old who still complained of generalized weakness. PHYSICAL EXAMINATION VITAL SIGNS: He is afebrile, pulse of 113, respirations 18 and blood pressure 142/81. LUNGS: Bilateral fair airflow. No rhonchi or crackles. HEART: S1 and S2 audible. ABDOMEN: Soft and nontender. No rebound. No guarding. NEUROLOGIC: The patient is awake, alert, oriented, communicative. EXTREMITIES: Bilateral leg, no edema. LABORATORY DATA: Sodium 144, potassium 3.3, chloride 109, CO2 of 26, BUN 13, creatinine 1.7, blood sugar of 83 and magnesium 1.6. Procalcitonin 0.17. His urine culture positive for gram-negative alice. ASSESSMENT: 1. Gram-negative sepsis, source is undetermined. 2. Non ST elevation myocardial infarction. 3. Uncontrolled diabetes. 4. Hypertension. 5. Hypokalemia. PLAN: Currently the patient is on IV fluid. We will continue on heparin, monitor his BUN and creatinine, monitor his blood sugar. The patient has been meropenem, supplement his potassium, supplement his magnesium. I will order for renal sonogram and I will repeat blood cultures in the a.m. Followup his CBC . Kyle Gama MD
--- NOTE | 2018-05-26 15:33 | CP.PCM.CON ---
<Hermelinda Carrizales - Last Filed: 05/26/18 15:29> History of Present Illness - History of Present Illness History of Present Illness: PGY-[address] Mathew ID consult: Sepsis Mr Nicole, 73M, with PMHx HTN, DM2 c/o generalized weakness x 4 days. He had fever at home, diaphoresis, urinary urgency, urinary incontinence, vomit x 1 and loss of appetite. Vomiting was NBNB. Pt endorsed that he is compliant with meds. He did not get flu shot this year. In ED, EKG shows Sinus Tachycardia at 105 BPM. he was found to have BG 860, BUN/Cr 24/2.4 with Elevated trop 0.56, elevated lactate of 6.8, elevate blood sugars and elevated trop 0.57 and temp of 101.4 noted yesterday. ROS- (+) SOB, (+) diaphoresis denies Fever, chills, chest pain, palpitation, N/V/D/C, dysuria, abdominal or groin pain, incomplete sensation of bladder emptying, weak urine stream or prostate problem. PMH: HTN, DM2 PSH: denied FH: non contributory Soc Hx: denied alcohol, smoking, drug use NKDA Med: norvasc 10mg qd, metformin 1000mg bid Past Patient History - Infectious Disease Hx of Infectious Diseases: None - Past Social History Smoking Status: Never Smoked - CARDIAC Hx Cardiac Disorders: Yes Hx Hypertension: Yes - PULMONARY Hx Respiratory Disorders: No - NEUROLOGICAL Hx Neurological Disorder: No - HEENT Hx HEENT Problems: No - RENAL Hx Chronic Kidney Disease: No - ENDOCRINE/METABOLIC Hx Endocrine Disorders: Yes Hx Diabetes Mellitus Type 2: Yes - HEMATOLOGICAL/ONCOLOGICAL Hx Blood Disorders: No - INTEGUMENTARY Hx Dermatological Problems: No - MUSCULOSKELETAL/RHEUMATOLOGICAL Hx Musculoskeletal Disorders: No - GASTROINTESTINAL Hx Gastrointestinal Disorders: No - GENITOURINARY/GYNECOLOGICAL Hx Genitourinary Disorders: No - PSYCHIATRIC Hx Psychophysiologic Disorder: No Hx Substance Use: No - SURGICAL HISTORY Hx Surgeries: No - ANESTHESIA Hx Anesthesia: No Meds Allergies/Adverse Reactions: Allergies Allergy/AdvReac Type Severity Reaction Status Date / Time No Known Allergies Allergy Verified 05/24/18 23:50 - Medications Medications: Current Medications Acetaminophen (Tylenol 325mg Tab) 650 mg PO Q4H PRN PRN Reason: Fever >100.5 F Amlodipine Besylate (Norvasc) 10 mg PO DAILY [facility] Last Admin: 05/25/18 10:42 Dose: 10 mg Meropenem (Merrem Iv 1 Gm Premix) 1 gm in 50 mls @ 100 mls/hr IVPB Q12 [facility]; Protocol Stop: 06/02/18 10:01 Heparin Sodium/Sodium Chloride (Heparin 27822 Units/250ml 1/2 Normal Saline) 25,000 units in 250 mls @ 9.986 mls/hr IV .Q24H [facility]; Protocol Insulin Detemir (Levemir) 20 unit SC HS [facility] Insulin Human Lispro (Humalog Low) 0 units SC ACHS [facility]; Protocol Last Admin: 05/26/18 10:24 Dose: Not Given Insulin Human Lispro (Humalog) 6 units SC AC [facility] Ondansetron HCl (Zofran Inj) 4 mg IVP Q6H PRN PRN Reason: Nausea/Vomiting Physical Exam - Constitutional Appears: No Acute Distress - Head Exam Head Exam: ATRAUMATIC, NORMAL INSPECTION, NORMOCEPHALIC - Eye Exam Eye Exam: EOMI, Normal appearance, PERRL. absent: Scleral icterus - ENT Exam ENT Exam: Mucous Membranes Moist - Neck Exam Additional comments: supple - Respiratory Exam Respiratory Exam: Clear to Auscultation Bilateral, NORMAL BREATHING PATTERN. absent: Rales, Rhonchi, Wheezes - Cardiovascular Exam Cardiovascular Exam: Tachycardia, REGULAR RHYTHM, +S1, +S2 - GI/Abdominal Exam GI & Abdominal Exam: Normal Bowel Sounds. absent: Guarding, Hernia, Rebound Additional comments: (+) suprapubic tenderness - Extremities Exam Extremities exam: Positive for: pedal pulses present. Negative for: calf tenderness - Back Exam Back exam: absent: CVA tenderness (L), CVA tenderness (R) - Neurological Exam Neurological exam: Alert, Oriented x3 - Psychiatric Exam Psychiatric exam: Normal Affect, Normal Mood - Skin Skin Exam: Dry, Warm Additional comments: Clammy Results - Vital Signs Recent Vital Signs: Last Vital Signs Temp 98.3 F 05/26/18 06:00 Pulse 115 H 05/26/18 06:00 Resp 18 05/26/18 06:00 BP 142/81 05/26/18 06:00 Pulse Ox 95 05/26/18 06:00 - Labs Result Diagrams: 05/26/18 06:30 05/26/18 12:00 Labs: Laboratory Results - last 24 hr 05/25/18 05/25/18 05/25/18 11:38 17:11 18:34 WBC RBC Hgb Hct MCV MCH MCHC RDW Plt Count MPV Gran % Lymph % (Auto) [place] % (Auto) Eos % (Auto) Baso % (Auto) Gran # Lymph # (Auto) [place] # (Auto) Eos # (Auto) Baso # (Auto) APTT 83.1 H pCO2 pO2 HCO3 ABG pH ABG Total CO2 ABG O2 Saturation ABG O2 Content ABG Base Excess ABG Hemoglobin ABG Carboxyhemoglobin POC ABG HHb (Measured) ABG Methemoglobin ABG O2 Capacity Hgb O2 Saturation FiO2 Sodium Potassium Chloride Carbon Dioxide Anion Gap BUN Creatinine Est GFR ( Amer) Est GFR (Non-Af Amer) POC Glucose (mg/dL) 193 H Random Glucose Calcium Magnesium Total Bilirubin AST ALT Alkaline Phosphatase Total Protein Albumin Globulin Albumin/Globulin Ratio Prostate Specific Ag Procalcitonin 0.17 L Free T4 TSH 3rd Generation 05/26/18 05/26/18 05/26/18 00:55 06:30 06:30 WBC 14.0 H D RBC 3.73 Hgb 9.7 L Hct 28.8 L MCV 77.2 L D MCH 26.0 MCHC 33.7 RDW 14.1 Plt Count 175 MPV 11.6 H Gran % 80.6 H Lymph % (Auto) 11.1 L [place] % (Auto) 8.1 H Eos % (Auto) 0.1 L Baso % (Auto) 0.1 Gran # 11.28 H Lymph # (Auto) 1.6 [place] # (Auto) 1.1 H Eos # (Auto) 0.0 Baso # (Auto) 0.01 APTT 64.0 H pCO2 pO2 HCO3 ABG pH ABG Total CO2 ABG O2 Saturation ABG O2 Content ABG Base Excess ABG Hemoglobin ABG Carboxyhemoglobin POC ABG HHb (Measured) ABG Methemoglobin ABG O2 Capacity Hgb O2 Saturation FiO2 Sodium 144 Potassium 3.3 L Chloride 109 H Carbon Dioxide 26 Anion Gap 11 BUN 13 Creatinine 1.7 H Est GFR ( Amer) 48 Est GFR (Non-Af Amer) 40 POC Glucose (mg/dL) Random Glucose 72 Calcium 8.1 L Magnesium 1.6 L Total Bilirubin 0.8 AST 88 H D ALT 50 Alkaline Phosphatase 121 Total Protein 7.0 Albumin 3.2 Globulin 3.7 Albumin/Globulin Ratio 0.9 L Prostate Specific Ag Procalcitonin Free T4 TSH 3rd Generation 05/26/18 05/26/18 05/26/18 06:30 06:30 07:41 WBC RBC Hgb Hct MCV MCH MCHC RDW Plt Count MPV Gran % Lymph % (Auto) [place] % (Auto) Eos % (Auto) Baso % (Auto) Gran # Lymph # (Auto) [place] # (Auto) Eos # (Auto) Baso # (Auto) APTT 40.3 H pCO2 pO2 HCO3 ABG pH ABG Total CO2 ABG O2 Saturation ABG O2 Content ABG Base Excess ABG Hemoglobin ABG Carboxyhemoglobin POC ABG HHb (Measured) ABG Methemoglobin ABG O2 Capacity Hgb O2 Saturation FiO2 Sodium Potassium Chloride Carbon Dioxide Anion Gap BUN Creatinine Est GFR ( Amer) Est GFR (Non-Af Amer) POC Glucose (mg/dL) 83 Random Glucose Calcium Magnesium Total Bilirubin AST ALT Alkaline Phosphatase Total Protein Albumin Globulin Albumin/Globulin Ratio Prostate Specific Ag 1.1 Procalcitonin Free T4 1.70 TSH 3rd Generation 1.63 05/26/18 05/26/18 12:00 13:49 WBC RBC Hgb Hct MCV MCH MCHC RDW Plt Count MPV Gran % Lymph % (Auto) [place] % (Auto) Eos % (Auto) Baso % (Auto) Gran # Lymph # (Auto) [place] # (Auto) Eos # (Auto) Baso # (Auto) APTT pCO2 37 pO2 94.0 HCO3 25.7 ABG pH 7.45 ABG Total CO2 26.8 ABG O2 Saturation 98.6 H ABG O2 Content 12.9 L ABG Base Excess 1.7 ABG Hemoglobin 9.5 L ABG Carboxyhemoglobin 1.9 H POC ABG HHb (Measured) 1.4 ABG Methemoglobin 0.9 ABG O2 Capacity 13.1 L Hgb O2 Saturation 95.7 FiO2 100.0 Sodium 145 Potassium 3.3 L Chloride 110 H Carbon Dioxide 28 Anion Gap 10 BUN 13 Creatinine 1.4 Est GFR ( Amer) 60 Est GFR (Non-Af Amer) 50 POC Glucose (mg/dL) Random Glucose 99 Calcium 7.9 L Magnesium Total Bilirubin 1.0 AST 95 H ALT 48 Alkaline Phosphatase 122 Total Protein 6.6 Albumin 3.2 Globulin 3.5 Albumin/Globulin Ratio 0.9 L Prostate Specific Ag Procalcitonin Free T4 TSH 3rd Generation Assessment & Plan - Assessment and Plan (Free Text) Plan: Possible Sepsis 2/2 Gram negative Fabrice bacteremia with MODS including NSTEMI, LIANE, HHS, transaminitis Sources may be with suprapubic tenderness, urine color changes and frequency. No GI complaints Lactic acidosis probably from sepsis, NSTEMI, or metformin NSTEMI on heparin gtt Hyperosmolar hyperglycemia LIANE Elevated CK 400 Elevated D-dimer. Had ruled out PE by V/Q - strict i/o. bladder scan prn. CT abdomen and pelvis to investigate infection sources. Get psa level - Vanco and aztreoman x 1. Now Merem (day 1). Follow blood and urine culture. flu screen negative. - Cardiac cath revealed triple vessel disease with normal LVEF. He will be transferred to [facility] in [place] for bypass surgery Imaging: - CXR (05/25): No active disease s/r/d/w Dr. Mathew <Glen Mathew S - Last Filed: 05/26/18 22:40> Meds - Medications Medications: Current Medications Acetaminophen (Tylenol 325mg Tab) 650 mg PO Q4H PRN PRN Reason: Fever >100.5 F Amlodipine Besylate (Norvasc) 10 mg PO DAILY [facility] Last Admin: 05/26/18 15:37 Dose: Not Given Meropenem (Merrem Iv 1 Gm Premix) 1 gm in 50 mls @ 100 mls/hr IVPB Q12 [facility]; Protocol Stop: 06/02/18 10:01 Last Admin: 05/26/18 15:36 Dose: Not Given Heparin Sodium/Sodium Chloride (Heparin 17677 Units/250ml 1/2 Normal Saline) 25,000 units in 250 mls @ 9.986 mls/hr IV .Q24H [facility]; Protocol Insulin Detemir (Levemir) 20 unit SC HS [facility] Insulin Human Lispro (Humalog Low) 0 units SC ACHS [facility]; Protocol Last Admin: 05/26/18 17:14 Dose: Not Given Insulin Human Lispro (Humalog) 6 units SC AC [facility] Ondansetron HCl (Zofran Inj) 4 mg IVP Q6H PRN PRN Reason: Nausea/Vomiting Results - Vital Signs Recent Vital Signs: Last Vital Signs Temp 97.6 F 05/26/18 12:56 Pulse 113 H 05/26/18 20:40 Resp 23 05/26/18 20:40 BP 147/79 05/26/18 20:30 Pulse Ox 93 L 05/26/18 20:40 - Labs Result Diagrams: 05/26/18 06:30 05/26/18 12:00 Labs: Laboratory Results - last 24 hr 05/26/18 05/26/18 05/26/18 00:55 06:30 06:30 WBC 14.0 H D RBC 3.73 Hgb 9.7 L Hct 28.8 L MCV 77.2 L D MCH 26.0 MCHC 33.7 RDW 14.1 Plt Count 175 MPV 11.6 H Gran % 80.6 H Lymph % (Auto) 11.1 L [place] % (Auto) 8.1 H Eos % (Auto) 0.1 L Baso % (Auto) 0.1 Gran # 11.28 H Lymph # (Auto) 1.6 [place] # (Auto) 1.1 H Eos # (Auto) 0.0 Baso # (Auto) 0.01 APTT 64.0 H pCO2 pO2 HCO3 ABG pH ABG Total CO2 ABG O2 Saturation ABG O2 Content ABG Base Excess ABG Hemoglobin ABG Carboxyhemoglobin POC ABG HHb (Measured) ABG Methemoglobin ABG O2 Capacity Hgb O2 Saturation FiO2 Sodium 144 Potassium 3.3 L Chloride 109 H Carbon Dioxide 26 Anion Gap 11 BUN 13 Creatinine 1.7 H Est GFR ( Amer) 48 Est GFR (Non-Af Amer) 40 POC Glucose (mg/dL) Random Glucose 72 Calcium 8.1 L Magnesium 1.6 L Total Bilirubin 0.8 AST 88 H D ALT 50 Alkaline Phosphatase 121 Total Protein 7.0 Albumin 3.2 Globulin 3.7 Albumin/Globulin Ratio 0.9 L Prostate Specific Ag Free T4 TSH 3rd Generation 05/26/18 05/26/18 05/26/18 06:30 06:30 07:41 WBC RBC Hgb Hct MCV MCH MCHC RDW Plt Count MPV Gran % Lymph % (Auto) [place] % (Auto) Eos % (Auto) Baso % (Auto) Gran # Lymph # (Auto) [place] # (Auto) Eos # (Auto) Baso # (Auto) APTT 40.3 H pCO2 pO2 HCO3 ABG pH ABG Total CO2 ABG O2 Saturation ABG O2 Content ABG Base Excess ABG Hemoglobin ABG Carboxyhemoglobin POC ABG HHb (Measured) ABG Methemoglobin ABG O2 Capacity Hgb O2 Saturation FiO2 Sodium Potassium Chloride Carbon Dioxide Anion Gap BUN Creatinine Est GFR ( Amer) Est GFR (Non-Af Amer) POC Glucose (mg/dL) 83 Random Glucose Calcium Magnesium Total Bilirubin AST ALT Alkaline Phosphatase Total Protein Albumin Globulin Albumin/Globulin Ratio Prostate Specific Ag 1.1 Free T4 1.70 TSH 3rd Generation 1.63 05/26/18 05/26/18 05/26/18 12:00 13:49 17:19 WBC RBC Hgb Hct MCV MCH MCHC RDW Plt Count MPV Gran % Lymph % (Auto) [place] % (Auto) Eos % (Auto) Baso % (Auto) Gran # Lymph # (Auto) [place] # (Auto) Eos # (Auto) Baso # (Auto) APTT pCO2 37 pO2 94.0 HCO3 25.7 ABG pH 7.45 ABG Total CO2 26.8 ABG O2 Saturation 98.6 H ABG O2 Content 12.9 L ABG Base Excess 1.7 ABG Hemoglobin 9.5 L ABG Carboxyhemoglobin 1.9 H POC ABG HHb (Measured) 1.4 ABG Methemoglobin 0.9 ABG O2 Capacity 13.1 L Hgb O2 Saturation 95.7 FiO2 100.0 Sodium 145 Potassium 3.3 L Chloride 110 H Carbon Dioxide 28 Anion Gap 10 BUN 13 Creatinine 1.4 Est GFR ( Amer) 60 Est GFR (Non-Af Amer) 50 POC Glucose (mg/dL) 78 Random Glucose 99 Calcium 7.9 L Magnesium Total Bilirubin 1.0 AST 95 H ALT 48 Alkaline Phosphatase 122 Total Protein 6.6 Albumin 3.2 Globulin 3.5 Albumin/Globulin Ratio 0.9 L Prostate Specific Ag Free T4 TSH 3rd Generation Assessment & Plan - Assessment and Plan (Free Text) Plan: Infectious diseases Attending Physician Attestation Patient seen and examined, discussed with medical facilities section director. I have reviewed the patient's history of present illness, past medical, social, personal and family histories, pertinent physical exam findings, course so far in this hospital admission, pertinent laboratory and imaging results. I agree with the above findings, assessment and plan. In addition, we have changed antibiotics to Merrem for patient with sepsis due to gram negative bacilli bactermia, consider as source. Follow up identification and sensitivities. Will get CT A/P. Patient being transferred to another facility for CABG.
[2018-05-26] MEDS ORDERED: Insulin Lispro 1 UNITS/0.01 ML SC SCH (16:30)
--- NOTE | 2018-05-26 18:17 | PN ---
DATE: 05/26/2018 ENDO FOLLOWUP NOTE LOCATION: ICU room 129, bed 2. SUBJECTIVE: This is a 73-year-old male with recent uncontrolled type 2 insulin-requiring diabetes, presenting here with marked hyperglycemic accelerations and also with concomitant acute myocardial infarction with a non-ST elevation type with elevated troponin levels as noted. He underwent a cardiac catheterization procedure, which revealed triple-vessel coronary artery disease as noted thereof and he will be transferred to [place] for coronary artery bypass graft surgery. His glycemic levels are fluctuating, but improved and the glucose values have ranged from 83 to 99 and 193 mg/dL. LABORATORY DATA: His latest chemistry shows a BUN of 13, sodium 145, potassium 3.3, chloride 110, CO2 28, glucose 99, and creatinine 1.4. ASSESSMENT: This is a 73-year-old male with uncontrolled and decompensated type 2 insulin-requiring diabetes with recent hyperglycemic accelerations related to the intercurrent acute cardiac event with increased insulin resistance and further impaired glucose tolerance thereof. His cardiac tests done revealed triple-vessel disease and will be transferred eventually for coronary artery bypass graft surgery as noted. His biochemical indices revealed the presence of acute myocardial infarction of the [id number] type as noted. PLAN OF MANAGEMENT: We will modify his current basal and bolus insulin regimen to optimize metabolic control. We will change the Humalog to 6 units t.i.d. before meals as ordered. We will continue also the low-dose correction scale using Humalog insulin to obviate hypoglycemia and detailed orders have been given. Moreover, we will lower the basal insulin with Levemir to be given as 20 units subcu at bedtime daily to start tonight. We will obtain serial chemistries and supplement accordingly as needed. We will follow with you. Tessie Anglin MD
[2018-05-26 20:46] VITALS: PULSE 113
[2018-05-26 20:56] VITALS: TEMP 97.6
[2018-05-26] MEDS ORDERED: Insulin Detemir 100 units/ml Vial (Levemir) SC SCH (22:00)
[2018-05-26 22:48] VITALS: BP 142/81; RESP 31; O2SAT 90
[2018-05-29 15:39] LABS: TOTAL PSA 1.3 ng/mL (< or = 4.0)
== END 2018-05-26 23:02 | disposition short-term general hospital (02) | DRG 280 ==
LOC: ED 23:37 → ERH 05-25 03:53 → 2RNO 05-25 04:32 → CCU 05-26 13:22
PROVIDERS: ADMIT Internal Medicine; ATTEND Internal Medicine
PROC: 4A023N7 Measurement of Cardiac Sampling and Pressure, Left Heart, Percutaneous Approach (ICD-10-PCS; principal; 2018-05-26)
PROC: B2151ZZ Fluoroscopy of Left Heart using Low Osmolar Contrast (ICD-10-PCS; 2018-05-26)
PROC: B2111ZZ Fluoroscopy of Multiple Coronary Arteries using Low Osmolar Contrast (ICD-10-PCS; 2018-05-26)
DX: I21.4 Non-ST elevation (NSTEMI) myocardial infarction (principal); A41.50 Gram-negative sepsis, unspecified; I25.10 Atherosclerotic heart disease of native coronary artery without angina pectoris; E11.65 Type 2 diabetes mellitus with hyperglycemia; I10 Essential (primary) hypertension; R39.15 Urgency of urination; N28.9 Disorder of kidney and ureter, unspecified; Z79.84 Long term (current) use of oral hypoglycemic drugs; E86.0 Dehydration; E87.6 Hypokalemia; Z79.82 Long term (current) use of aspirin; E78.00 Pure hypercholesterolemia, unspecified; E78.5 Hyperlipidemia, unspecified; I11.0 Hypertensive heart disease with heart failure; I50.9 Heart failure, unspecified